=== PATIENT | female | born 1945 | race Caucasian/White ===

== ENCOUNTER → 2016-10-02 | Outpatient (CLI) | payer OTHER ==
[~2016-10-02] MED LIST: 'XANAX0.25 MG PO; ADDERALL 20 MG20 MG PO; AMPICILLIN250 MG PO; ARTHROTEC50 MG PO; ATARAX25 MG PO; ATIVAN1 MG PO; BACTRIM DS 8001 TA1 PO; BACTROBAN CREAM15 GM PO; BRIN20TA PO; BUPROPION HCL150 MG PO; CELEXA20 MG PO; CILOXAN 5 ML5 M1 OT; CIPRO250 MG PO; CIPRO500 MG PO; CIPROFLOXACIN500 M4 PO; CLINDAMYCIN HC300 MG PO; CYMBALTA30 MG PO; DAYPRO600 M1 PO; DELTASONE10 MG PO; DEXTROAMPH SACC20 M1 PO; ENTOCORT3 MG PO; ESTRADIOL0.5 MG PO; FLEXERIL10 MG PO; FLONASE0.05 MG/AC NS; HUMIRA40 MG/0.8 MR; HYDROCODONE BIT1 T11 PO; LAMICTAL CD25 MG PO; LEVOFLOXACIN500 MG PO; LEVOTHYROXINE0.15 M1 PO; LIDODERM 5% PATC1 EA T; LISINOPRIL10 MG PO; MEDROL DOSEPAK4 MG PO; METRONIDAZOLE250 M1 PO; NAPROSYN500 MG PO; OXYCODONE HCL30 MG PO; OXYCODONE HYDRO30 MG PO; OXYCODONE30 MG PO; PENTASA500 MG PO; PERCOCET 325 MG1 TA7 PO; PREDNISONE20 MG PO; PREMARIN0.3 MG PO; PRINIVIL10 MG PO; PYRIDIUM200 MG PO; ROBAXIN500 MG PO; SYNTHROID0.125 MG PO; TRAMADOL HCL50 MG PO; VIIBRYD40 PO; VITAMIN D50000 I3 PO; WALKER; XANAX0.25 MG PO; ZOFRAN ODT4 MG PO; ZOFRAN ODT4 MG SL; [UNRECOGNIZED DRUG - OTHER]
== END | disposition home or self-care (01) ==
LOC: RAD 09-30 11:00 → MRI 09:00
DX: M47.895 Other spondylosis, thoracolumbar region (principal); M51.26 Other intervertebral disc displacement, lumbar region; M48.07 Spinal stenosis, lumbosacral region; M48.54XA Collapsed vertebra, not elsewhere classified, thoracic region, initial encounter for fracture; Z87.81 Personal history of (healed) traumatic fracture

== ENCOUNTER → 2016-10-13 | Outpatient (CLI) | payer OTHER ==
[~2016-10-13] MED LIST changes: +CILOXAN 5 ML5 M1
[2016-10-13 12:18] LABS: BASO % 0.2 % (0.0-1.0); EOS # 0.2 10*3/uL (0.0-0.4); EOS % 2.2 % (1.0-4.0); HEMATOCRIT 41.3 % (37.0-47.0); HEMOGLOBIN 12.7 g/dl (12.0-16.0); LYMPH # 1.5 10*3/uL (1.3-4.4); LYMPH % 16.9 % (27.0-41.0); MEAN CELL VOLUME 91.8 fl (81.0-99.0); MEAN CORPUSCULAR HGB 28.2 pg (27.0-31.0); MEAN CORPUSCULAR HGB CONC 30.8 g/dl (33.0-37.0); MEAN PLATELET VOLUME 9.8 fl (9.6-12.3); MONO # 0.7 10*3/uL (0.1-1.0); MONO % 7.5 % (3.0-9.0); NEUT # 6.5 10*3/uL (2.3-7.9); NEUT % 72.9 % (47.0-73.0); PLATELET COUNT AUTOMATED 250 10*3/uL (130-400); RED CELL DISTRI WIDTH 14.6 % (0-14.5); WHITE BLOOD COUNT 8.9 10*3/uL (4.8-10.8)
[2016-10-13 12:26] LABS: ALBUMIN 3.5 gm/dl (3.1-4.5); ALKALINE PHOSPHATASE 72 U/L (45-117); BILIRUBIN, TOTAL 0.7 mg/dl (0.2-1.0); BUN 15 mg/dl (7-24); CARBON DIOXIDE 28 mmol/L (21-32); CHLORIDE 103 mmol/L (98-107); CHOLESTEROL 187 mg/dL (<200); EST GLOM FILT AFRICAN AMERICAN > 60 ml/min; FREE T4 1.16 ng/dl (0.76-1.46); GLUCOSE 87 mg/dL (65-99); HDL CHOLESTEROL 81 mg/dl (40-60); LDL CHOLESTEROL 82 mg/dL (9-159); SGOT/AST 25 IU/L (3-35); SGPT/ALT 21 U/L (12-78); SODIUM 141 mmol/L (136-145); TOTAL PROTEIN 6.7 gm/dL (6.4-8.2); TRIGLYCERIDES 118 mg/dl (<150); VLDL CHOLESTEROL 24 mg/dL (6-40)
[2016-10-13 12:47] LABS: VITAMIN D, 25-HYDROXY 32.7 ng/mL (30-100)
[2016-10-13 12:49] LABS: FOLIC ACID > 24.00 ng/mL (>5.38)
== END | disposition home or self-care (01) ==
LOC: LAB 10:55
PROVIDERS: Internal Medicine
DX: I10 Essential (primary) hypertension (principal); M48.55XA Collapsed vertebra, not elsewhere classified, thoracolumbar region, initial encounter for fracture; F90.9 Attention-deficit hyperactivity disorder, unspecified type; E03.9 Hypothyroidism, unspecified; M54.5 Low back pain; E55.9 Vitamin D deficiency, unspecified; M48.06 Spinal stenosis, lumbar region; M41.84 Other forms of scoliosis, thoracic region; Z91.81 History of falling

== ENCOUNTER → 2016-10-14 | Day surgery (SDC) | payer OTHER ==
[~2016-10-14] VITALS: Ht 152.4 cm; Wt 72.6 kg
--- NOTE | ~2016-10-14 | O ---
[place], [place] OPERATIVE NOTE NAME: ODETTE BOLAND [facility] #: [id number] UNIT #: [id number] ROOM: DOCTOR: JIAN MCGEE MD BIRTHDATE: [birth year] DOS: 10/15/2016 PREOPERATIVE DIAGNOSIS: Retained ventilation tubes. POSTOPERATIVE DIAGNOSIS: Retained ventilation tubes. OPERATION: Removal of retained ventilation tubes. SURGEON: Dr. Mcgee. ANESTHESIA: General. INDICATIONS: The patient is being taken to the operating room for removal of retained ventilation tubes. OPERATIVE FINDINGS AND PROCEDURE: Following induction of general anesthesia, the patient was positioned supine on the OR table and draped in a standard fashion for ear surgery. The surgical microscope was brought into the operative field. The ears were examined, and retained synthetic ventilation tubes were removed from the ear canals bilaterally. Topical ciprofloxacin drops were then instilled in both ears. The patient tolerated the procedure well, was awakened and transported to PACU in satisfactory condition. JIAN MCGEE MD CM:OPRECORD:OPERATIVE NOTE [id number] JIAN MCGEE MD 10/15/16 1109 interface
[2016-10-14 12:20] VITALS: BP 123/57
[2016-10-14 12:35] VITALS: BP 105/68
[2016-10-14 12:50] VITALS: BP 140/79
== END | disposition home or self-care (01) ==
LOC: SDC 09-04 10:15
DX: H74.8X3 Other specified disorders of middle ear and mastoid, bilateral (principal); E07.9 Disorder of thyroid, unspecified; F32.9 Major depressive disorder, single episode, unspecified; I10 Essential (primary) hypertension; F41.9 Anxiety disorder, unspecified; K50.90 Crohn's disease, unspecified, without complications; Z90.710 Acquired absence of both cervix and uterus; Z80.9 Family history of malignant neoplasm, unspecified; Z82.49 Family history of ischemic heart disease and other diseases of the circulatory system; Z87.891 Personal history of nicotine dependence

== ENCOUNTER → 2016-10-21 | Outpatient (CLI) | payer OTHER ==
[2016-10-21 10:21] LABS: INTERNATIONAL NORM RATIO 0.9 (2.0-3.5)
[2016-10-21 10:41] VITALS: BP 138/76
== END | disposition home or self-care (01) ==
LOC: RAD 10-20 11:00
PROVIDERS: Internal Medicine
DX: M48.54XA Collapsed vertebra, not elsewhere classified, thoracic region, initial encounter for fracture (principal); D68.8 Other specified coagulation defects; Z91.81 History of falling

== ENCOUNTER 2017-03-27 12:42 | Emergency (ER) | payer OTHER ==
[~2017-03-27] VITALS: Ht 180.3 cm; Wt 74.8 kg
[2017-03-27 12:50] VITALS: BP 149/89
[2017-03-27 14:24] LABS: BILIRUBIN 1+ (NEGATIVE); BLOOD NEGATIVE (NEGATIVE); CLARITY SL CLOUDY (CLEAR); COLOR YELLOW (YELLOW); GLUCOSE NEGATIVE (NEGATIVE); KETONE TRACE (NEGATIVE); LEUKO ESTERASE TRACE (NEGATIVE); NITRITE POSITIVE (NEGATIVE); SPECIFIC GRAVITY 1.015 (1.005-1.030)
[2017-03-27 14:25] LABS: BASO % 0.1 % (0.0-1.0); EOS # 0.2 10*3/uL (0.0-0.4); EOS % 2.4 % (1.0-4.0); HEMATOCRIT 40.1 % (37.0-47.0); HEMOGLOBIN 12.6 g/dl (12.0-16.0); LYMPH # 1.1 10*3/uL (1.3-4.4); LYMPH % 13.4 % (27.0-41.0); MEAN CORPUSCULAR HGB 29.2 pg (27.0-31.0); MEAN CORPUSCULAR HGB CONC 31.4 g/dl (33.0-37.0); MEAN PLATELET VOLUME 10.5 fl (9.6-12.3); MONO # 0.4 10*3/uL (0.1-1.0); MONO % 5.4 % (3.0-9.0); NEUT # 6.2 10*3/uL (2.3-7.9); NEUT % 78.4 % (47.0-73.0); PLATELET COUNT AUTOMATED 148 10*3/uL (130-400); RED BLOOD COUNT 4.31 10*6/uL (4.10-5.10); RED CELL DISTRI WIDTH 14.6 % (0-14.5); WHITE BLOOD COUNT 7.9 10*3/uL (4.8-10.8)
[2017-03-27 14:31] LABS: BACTERIA 1+; RBC 0-2 rbc/hpf (0-2); WBC 16-20 wbc/hpf (0-5)
[2017-03-27 14:39] LABS: ACT PARTIAL THROMBO TIME 25.5 SECONDS (20.8-31.5); ALBUMIN 3.5 gm/dl (3.1-4.5); ALKALINE PHOSPHATASE 85 U/L (45-117); BUN 12 mg/dl (7-24); CHLORIDE 106 mmol/L (98-107); CREATININE 0.98 mg/dL (0.55-1.02); LIPASE 115 U/L (73-393); POTASSIUM 3.6 mmol/L (3.5-5.1); SGOT/AST 26 IU/L (3-35); SGPT/ALT 20 U/L (12-78); SODIUM 140 mmol/L (136-145); TOTAL PROTEIN 6.6 gm/dL (6.4-8.2); TROPONIN I < 0.015 ng/ml (<0.045)
[2017-03-27] MEDS ORDERED: PREDNISONE50 MG PO (15:11)
[2017-03-27] MEDS ORDERED: LEVAQUIN750 M1 PO (15:11)
== END 2017-03-27 15:34 | disposition home or self-care (01) ==
LOC: ED 12:42
PROVIDERS: Emergency Medicine
DX: J20.9 Acute bronchitis, unspecified (principal); N39.0 Urinary tract infection, site not specified; I10 Essential (primary) hypertension; E03.9 Hypothyroidism, unspecified; Z87.891 Personal history of nicotine dependence; Z90.49 Acquired absence of other specified parts of digestive tract; Z90.710 Acquired absence of both cervix and uterus; Z98.890 Other specified postprocedural states; Z79.899 Other long term (current) drug therapy; Z88.8 Allergy status to other drugs, medicaments and biological substances

== ENCOUNTER → 2017-04-16 | Outpatient (CLI) | payer OTHER ==
[~2017-04-16] MED LIST changes: +LEVAQUIN750 M1 PO; +PREDNISONE50 MG PO
== END | disposition home or self-care (01) ==
LOC: RAD 11:27
DX: Z13.820 Encounter for screening for osteoporosis (principal); Z78.0 Asymptomatic menopausal state

== ENCOUNTER 2017-08-09 04:47 | Inpatient (IN) | payer OTHER ==
[~2017-08-09] VITALS: Ht 154.9 cm; Wt 73.7 kg
[2017-08-09] VITALS (7 sets, daily range): BP systolic 123–164; BP diastolic 53–65
--- NOTE | ~2017-08-09 | DS ---
[place], [place] DISCHARGE SUMMARY NAME: ODETTE BOLAND [facility] #: [id number] UNIT #: [id number] ROOM: 422 DOCTOR: DUANE GAMASATNAM BIRTHDATE: [birth year] DOS: 08/12/2017 DIAGNOSES: 1. Paralytic ileus, which is resolved. 2. Chronic diarrhea from history of Crohn's colitis, for colonoscopy today. 3. Hypokalemia. Supplementation was given. 4. Benign hypertension. 5. Major mild depression, recurrent. 6. Attention deficit disorder. 7. Generalized anxiety disorder. 8. Chronic back pain from degenerative spinal stenosis with neurogenic claudication. 9. History of cholecystectomy. 10. Exploratory surgery for adhesiolysis. DISCHARGE MEDICATIONS: The patient's medications on discharge will remain the same as in admission: Lisinopril 10, Xanax 0.25 t.i.d. p.r.n., oxycodone 30 q. 4 p.r.n., levothyroxine 150 mcg daily, Adderall 20 b.i.d., Lyrica 300 b.i.d., alendronate 70 once weekly, iron 325 daily, Estrace for local application. HOSPITAL COURSE: The patient is 72 years old. The patient comes in with extreme abdominal pain and diarrhea. Please see H and P for details. She was found to have ileus on x-rays of the abdomen. She was admitted, kept n.p.o., IV fluids were given. The patient became extremely anxious and agitated and restless. Dr. Murdock was consulted. She was already on Xanax through her psychiatrist, which has been continued. Dr. Murdock felt that she would benefit from doxepin, which was started. She was continued on Dilaudid for chronic back pain and abdominal pain. Dr. Fagan was consulted and was scheduled for a colonoscopy. She has history of Crohn's colitis, but has not been taking any of her medications for the last several years and may require restarting her medicines. This morning, the patient is stable. Blood pressure did go up during the night, but has come down promptly after clonidine was given. The patient can be discharged home after the endoscopy and colonoscopy and follow up as an outpatient. [place], [place] DISCHARGE SUMMARY NAME: ODETTE BOLAND UNIT #: [id number] ROOM: [facility] DOCTOR: SATNAM EZPEDA MD BIRTHDATE: [birth year] SATNAM ZEPEDA MD CM:JANESSA [id number] SATNAM ZEPEDA MD 08/13/17 1143 interface
--- NOTE | ~2017-08-09 | O ---
[place], [place] OPERATIVE NOTE NAME[facility] [id number] UNIT #: [id number] ROOM: 422 DOCTOR: AGATHA WHITMAN MD BIRTHDATE: [birth year] DOS: 08/12/2017 GASTROENDOSCOPIC REPORT HISTORY: This is a 72-year-old patient, who presented with abdominal cramp, epigastric distress, dark stool, and symptomatology of flu. She had to be admitted for definitive workup. Her lactic acid initially was 1.4. Her H and H were 13 and 41. INR 1.0. Electrolytes, potassium 3.2. Liver function tests normal. Troponin normal. She had acute abdominal series, no acute cardiopulmonary. Drug screening, urine opiates were positive. Urinalysis, ketones 1+. CT scan of the abdomen and pelvis, few prominent nonenlarged loops of the bowel, possible resolving partial obstruction. A large hiatal hernia was reported. Acute abdominal series again followup, no active pathology was noticed. Therefore, she was prepped for evaluation. PAST MEDICAL HISTORY: Ambiguous history of Crohn's history, diverticulosis history, colonic polyp, hiatal hernia, hypertension, and hypothyroidism. PAST SURGICAL HISTORY: Appendectomy, laparotomy, hysterectomy, cholecystectomy, and spine surgery. SOCIAL HISTORY: Nonsmoker, nonalcohol consumer. FAMILY HISTORY: Noncontributory. ALLERGIES: TO PROMETHAZINE. MEDICATIONS AT HOME: Reviewed. PROCEDURE: Today's procedure part of investigation is panendoscopy plus colonoscopy. PREMEDICATION: Versed and Diprivan. SCOPE: Olympus forward-viewing colonoscope 10L video. REPORT: After putting the patient in the left lateral position and application of lubricant to the scope, the scope was introduced; thereafter, under direct visualization advanced through the length of esophagus without difficulty. [id number] hiatal hernia was noticed. Gastric pouch was entered. Gastritis was seen. Antral biopsy obtained. Duodenal bulb, second and third part within normal limits. The patient was gradually extubated and tolerated the procedure well. IMPRESSION: Large hiatal hernia, gastritis. PLAN AND DISCUSSION: We are going to proceed with colon screening. [place], [place] OPERATIVE NOTE NAME: ODETTE BOLAND UNIT #: [id number] ROOM: 422 DOCTOR: BALJINDER [facility] BIR[facility] [birth year] AGATHA WHITMAN MD CM:MARSHAL:OPERATIVE NOTE [phone] AGATHA WHITMAN MD 08/13/17 1401 interface
--- NOTE | ~2017-08-09 | O ---
[place], [place] OPERATIVE NOTE [facility] [id number] UNIT #: [id number] ROOM: 422 DOCTOR: ANTONETTE GAMA,AGATHA BIRTHDATE: [birth year] DOS: 08/12/2017 GASTROENDOSCOPIC REPORT HISTORY: The patient has presented with a chief complaint of abdominal pain, ambiguous, undergoing investigation. PROCEDURE: Today's procedure part of investigation is colonoscopy. PREMEDICATION: Versed and Diprivan. SCOPE: Olympus forward-viewing colonoscope 10L video. REPORT: After putting the patient in the left lateral position and application of lubricant to the scope, the scope was introduced; thereafter, under direct visualization advanced through the length of colon without difficulty. Base of the cecum explored, appendiceal orifice identified, and ileocecal valve was defined. Scope was gradually withdrawn from ascending, transverse, and descending colon. The patient gradually extubated and tolerated the procedure well. IMPRESSION: Rare diverticulosis, otherwise normal colonoscopic examination. PLAN AND DISCUSSION: PPI in addition to 40 mg of Protonix. We can consider use of Gaviscon 1 at bedtime to prevent some of her reflux symptomatology. She has supportive management otherwise. X-rays of the abdomen, CT scans, and blood work all has been recognized and no acute pathology of concern otherwise identified. AGATHA WHITMAN MD CM:OPRECORD:OPERATIVE NOTE [id number] AGATHA WHITMAN MD 08/13/17 1402 interface
--- NOTE | ~2017-08-09 | PR ---
[place], [place] PROGRESS NOTE NAME: ODETTE BOLAND [facility] #: [id number] UNIT #: [id number] ROOM: 422 DOCTOR: SATNAM ZEPEDA MD BIRTHDATE: [birth year] DOS: 08/12/2017 SUBJECTIVE: The patient is doing fine without any complaints. Her pressure was high during the night, was given clonidine, the pressure is normal this morning. I believe she most likely did get quite anxious about the pending procedure. OBJECTIVE: VITAL SIGNS: Blood pressure is 137/90, pulse of 73, respirations 18, temperature 98.3. LUNGS: Clear. HEART: Regular. ABDOMEN: Obese. EXTREMITIES: Without any edema. ASSESSMENT AND PLAN: 1. Hypokalemia noted. Supplementation was ordered. 2. Paralytic ileus, which is resolved on acute abdominal series. The patient is to have a colonoscopy today. After that is done, the patient should be able to go back home. Discussed with both patient and . SATNAM ZEPEDA MD CM:PNTRANS 0848 0945 SATNAM ZEPEDA MD 08/12/17 2344 interface
--- NOTE | ~2017-08-09 | PR ---
[place], [place] PROGRESS NOTE NAME: ODETTE BOLAND [facility] #: [id number] UNIT #: [id number] ROOM: 422 DOCTOR: SATNAM ZEPEDA MD BIRTHDATE: [birth year] DOS: 08/10/2017 SUBJECTIVE: The patient is doing fine without any complaints this morning. She said before she came into the hospital, she had a lot of increased frequency of urination. The patient does not have any complaints other than her chronic pain. OBJECTIVE: VITAL SIGNS: Blood pressure is 140/62, pulse of 74, respirations 18, temperature 97.6. LUNGS: Clear. HEART: Regular. ABDOMEN: Obese, soft. EXTREMITIES: Without any edema. ASSESSMENT AND PLAN: 1. Paralytic ileus, possibly from medications. Awaiting acute abdominal series this morning. If it looks better, the patient hopefully can be taken for Endo-colo. 2. Crohn's colitis with the patient currently not taking any medications. Once we have the colonoscopy, Dr. Fagan will decide on restarting her meds. 3. Urinary tract infection. Urinalysis done in the beginning of admission did not show any evidence of any bacteriuria, so it is ____ to culture. We do not have the results yet. 4. Anxiety. The patient sees psych as an outpatient. Dr. Murdock was consulted. The patient has been placed on Atarax and Xanax p.r.n. SATNAM ZEPEDA MD CM:PNTRANS 0817 0840 SATNAM ZEPEDA MD 08/13/17 1151 interface
--- NOTE | ~2017-08-09 | CON ---
[place], [place] REPORT OF CONSULTATION [id number] UNIT #: [id number] ROOM: 422 DOCTOR: MELISA JADE MD BIRTHDATE: [birth year] DOS: 08/10/2017 PSYCHIATRIC CONSULTATION CHIEF COMPLAINT: "Oh, I have so much pain, it drives me crazy." SUMMARY OF THE VISIT: This is a 72-year-old white female who is admitted now due to multiple medical complaints including possible paralytic ileus and Crohn's colitis. The patient does note though that she has significant depression and anxiety, much of this is made worse by her chronic pain. 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 She has now sustained at least 2 vertebrae that have collapsed. She is in constant chronic pain and rates the pain usually as an 8 or 9 on a scale of 1-10 with 10 being the worst pain. The pain often times will interfere with her sleep, causing her to have difficulty falling asleep, sleep continuity disturbance, foamite mixer awakening. She is very anergic and anhedonic. She also endorses fluctuations in her appetite. Anxiety is somewhat free range as well. Of note, the patient has a history of Crohn's colitis. MENTAL STATUS: She is alert and oriented to person, place and time. Mood does seem to be depressed with anxious overtones. There is no anson, hypomania or psychosis. Memory for the most part is intact. DIAGNOSES: Major depression, recurrent and anxiety disorder, not otherwise specified. PLAN: I will go ahead and start her on low dose doxepin. The doxepin will increase the effectiveness of the Vicodin at relieving her pain. It will also slow the Crohn's colitis down. It should give her a calming affect during the day, whereby you would not have to utilize any addicting type of agent. The patient does report having been on Cymbalta before and it was ineffective at relieving depression, anxiety and pain, so I will not utilize this again. The patient can follow up with her outpatient provider. MELISA JADE MD CM:CONSTR:REPORT OF CONSULTATION 0956 08/10/17 1011 interface
--- NOTE | ~2017-08-09 | WRIGHTHP ---
[place], [place] PATIENT HISTORY AND PHYSICAL EXAM NAME: ODETTE BOLAND [facility] #: [id number] UNIT #: [id number] ROOM: 422 DOCTOR: SATNMA ZEPEDA MD BIRTHDATE: [birth year] DOS: 08/09/2017 HISTORY OF PRESENT ILLNESS: The patient was brought to the Emergency Room with complaints of abdominal pain. The patient was quite somnolent. I was unable to get any history from her. The patient's was available and spoke to him. She has been having some intermittent diarrhea for the last several days and he had given her Kaopectate and this seems to have slowed diarrhea down, but yesterday she developed some severe abdominal pain, was brought to the Emergency Room. In the ER, she appeared to be quite restless as per the ER staff and she was given multiple doses of Ativan and Benadryl. This made the patient extremely somnolent and the patient had to be admitted to the hospital. Denied having any chest pains or palpitations. She does not have any fever or chills. She has had some abdominal discomfort recently and she was scheduled for an endoscopy and colonoscopy as an outpatient for Thursday and the patient has been extremely anxious about the procedure as per the family. PAST MEDICAL HISTORY: Significant for: 1. Degenerative lumbar spinal stenosis with neurogenic claudication. She is on steroid injections of the back and chronic pain management. 2. History of Crohn's colitis. The last hospitalization was in 2015. 3. Benign hypertension. 4. Major depression. 5. Attention deficit disorder, for which she takes Adderall. 6. History of exploratory surgery with adhesiolysis. 7. History of cholecystectomy. MEDICATIONS: She is on Adderall, oxycodone, Viibryd, Lyrica, levothyroxine and lisinopril. SOCIAL HISTORY: Nonsmoker, does not use any alcohol. Lives at home. 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 VITAL SIGNS: Graphic trend shows blood pressure of 144/64, pulse of 92, respirations 20, temperature 97.6. LUNGS: Diminished breath sounds. No wheezes, rales or rhonchi heard. HEART: Regular. ABDOMEN: Obese, soft, multiple scars from previous surgeries. EXTREMITIES: Without any edema. ASSESSMENT AND PLAN: 1. The patient presents with abdominal pain with minimal amount of ileus noticed on a CT scan of the abdomen. The patient will be kept n.p.o. and IV fluids and a repeat abdominal CT will be ordered tomorrow to see whether there is improvement. 2. History of Crohn's colitis, diagnosed in 2016. The patient was never placed on any medications for Crohn's and has had intermittent diarrhea for many, many years now. The patient used to be taking Humira and Pentasa about 10-15 years ago, but was discontinued because it was too expensive. We may need to restart [place], [place] PATIENT HISTORY AND PHYSICAL EXAM NAME: ODETTE BOLAND [facility] #: [id number] UNIT #: [id number] ROOM: [facility] DOCTOR: SATNAM ZEPEDA MD BIRTHDATE: [birth year] some of her old medications again, We will let Dr. Fagan handle it. 3. Chronic pain syndrome. The patient is on multiple pain medications, which currently are on hold because of n.p.o. status. SATNAM ZEPEDA MD CM:HISPHYS:PATIENT HISTORY AND PHYSICAL EXAMINATION 0850 1130 SATNAM ZEPEDA MD 08/09/17 1128 interface
--- NOTE | ~2017-08-09 | PR ---
[place], [place] PROGRESS NOTE NAME: ODETTE BOLAND [facility] #: [id number] UNIT #: [id number] ROOM: 422 DOCTOR: SATNAM ZEPEDA MD BIRTHDATE: [birth year] DOS: 08/11/2017 SUBJECTIVE: The patient is not having any complaints. As per her , she gets restless during the night, so he stayed back with her. OBJECTIVE: VITAL SIGNS: Graphic trend shows blood pressure 130/82, pulse of 62, respirations 16, temperature 98. LUNGS: Clear. HEART: Regular. ABDOMEN: Obese, soft. EXTREMITIES: Without any edema. ASSESSMENT AND PLAN: 1. Abdominal pain with paralytic ileus, which has resolved. 2. History of Crohn's disease. The patient is not on any medications. Dr. Fagan plans to do an endo-colo tomorrow, after that the patient can be discharged. 3. Ibrahim catheter can be discontinued in the morning. She did not want to have it removed today. 4. Chronic back pain from degenerative lumbar spinal stenosis. She is taking pain medications IV now, not p.o. 5. Generalized anxiety disorder, on multiple medications. We will not make any changes right now. SATNAM ZEPEDA MD CM:PNTRANS 0823 0837 SATNAM ZEPEDA MD 08/13/17 1151 interface
[2017-08-09 05:51] LABS: BASO % 0.1 % (0.0-1.0); EOS # 0.1 10*3/uL (0.0-0.4); EOS % 1.5 % (1.0-4.0); HEMATOCRIT 41.7 % (37.0-47.0); HEMOGLOBIN 13.3 g/dl (12.0-16.0); LYMPH % 11.3 % (27.0-41.0); MEAN CELL VOLUME 91.6 fl (81.0-99.0); MEAN CORPUSCULAR HGB 29.2 pg (27.0-31.0); MEAN CORPUSCULAR HGB CONC 31.9 g/dl (33.0-37.0); MEAN PLATELET VOLUME 10.4 fl (9.6-12.3); MONO # 0.6 10*3/uL (0.1-1.0); MONO % 6.7 % (3.0-9.0); NEUT # 7.2 10*3/uL (2.3-7.9); NEUT % 80.1 % (47.0-73.0); PLATELET COUNT AUTOMATED 135 10*3/uL (130-400); RED BLOOD COUNT 4.55 10*6/uL (4.10-5.10); RED CELL DISTRI WIDTH 15.7 % (0-14.5); WHITE BLOOD COUNT 9.1 10*3/uL (4.8-10.8)
[2017-08-09 06:10] LABS: ALBUMIN 3.2 gm/dl (3.1-4.5); ALKALINE PHOSPHATASE 81 U/L (45-117); BUN 8 mg/dl (7-24); CHLORIDE 107 mmol/L (98-107); CREATININE 0.75 mg/dL (0.55-1.02); LIPASE 82 U/L (73-393); POTASSIUM 3.2 mmol/L (3.5-5.1); SGOT/AST 20 IU/L (3-35); SGPT/ALT 22 U/L (12-78); SODIUM 141 mmol/L (136-145); TOTAL PROTEIN 6.4 gm/dL (6.4-8.2); TROPONIN I 0.017 ng/ml (<0.045)
[2017-08-09 06:18] LABS: BILIRUBIN NEGATIVE (NEGATIVE); BLOOD NEGATIVE (NEGATIVE); CLARITY CLEAR (CLEAR); COLOR YELLOW (YELLOW); GLUCOSE NEGATIVE (NEGATIVE); KETONE 1+ (NEGATIVE); LEUKO ESTERASE NEGATIVE (NEGATIVE); NITRITE NEGATIVE (NEGATIVE)
[2017-08-09 06:27] LABS: URINE AMPHETAMINES < 1000 (1000ng/ml); URINE BARBITURATES < 200 (200ng/ml); URINE BENZODIAZEPINES < 200 (200ng/ml); URINE CANNABINOIDS (THC) < 50 (50ng/ml); URINE COCAINE < 300 (300ng/ml); URINE METHADONE < 300 (300ng/ml); URINE OPIATES > 300 (300ng/ml)
[2017-08-09 06:28] LABS: URINE PHENCYCLIDINE < 25 (25ng/ml)
[2017-08-09 06:30] LABS: BACTERIA TRACE
[2017-08-09] MEDS ORDERED: FOSAMAX70 M1 PO (12:13)
[2017-08-09] MEDS ORDERED: LYRICA300 MG PO (12:13)
[2017-08-09] MEDS ORDERED: FEROSUL325 MG PO (12:14)
[2017-08-09] MEDS ORDERED: ESTRACE 0.01%42.5 GM V (12:14)
[2017-08-10] VITALS: BP 140/62
[2017-08-10 08:00] VITALS: BP 141/51
[2017-08-10 12:00] VITALS: BP 146/86
[2017-08-10 16:00] VITALS: BP 132/59
[2017-08-10 20:00] VITALS: BP 142/68
[2017-08-11] VITALS: BP 153/63
[2017-08-11 07:49] VITALS: BP 130/80
[2017-08-11 11:43] VITALS: BP 154/80
[2017-08-11 16:00] VITALS: BP 161/58
[2017-08-11 20:00] VITALS: BP 149/54
[2017-08-12] VITALS (8 sets, daily range): BP systolic 120–174; BP diastolic 52–90
[2017-08-12 06:59] LABS: BASO % 0.4 % (0.0-1.0); EOS # 0.3 10*3/uL (0.0-0.4); EOS % 5.3 % (1.0-4.0); HEMATOCRIT 35.6 % (37.0-47.0); HEMOGLOBIN 11.8 g/dl (12.0-16.0); LYMPH % 20.2 % (27.0-41.0); MEAN CELL VOLUME 90.6 fl (81.0-99.0); MEAN CORPUSCULAR HGB CONC 33.1 g/dl (33.0-37.0); MEAN PLATELET VOLUME 10.5 fl (9.6-12.3); MONO # 0.5 10*3/uL (0.1-1.0); MONO % 10.4 % (3.0-9.0); NEUT # 3.3 10*3/uL (2.3-7.9); NEUT % 63.5 % (47.0-73.0); PLATELET COUNT AUTOMATED 124 10*3/uL (130-400); RED BLOOD COUNT 3.93 10*6/uL (4.10-5.10); RED CELL DISTRI WIDTH 15.2 % (0-14.5); WHITE BLOOD COUNT 5.1 10*3/uL (4.8-10.8)
[2017-08-12 07:10] LABS: BUN 3 mg/dl (7-24); CHLORIDE 110 mmol/L (98-107); CREATININE 0.48 mg/dL (0.55-1.02); POTASSIUM 3.3 mmol/L (3.5-5.1); SODIUM 142 mmol/L (136-145)
[2017-08-12] MEDS ORDERED: LISINOPRIL20 MG PO ×2 (08:49)
[2017-08-12] MEDS ORDERED: K-TAB10 MEQ PO (08:50)
== END 2017-08-12 12:10 | disposition home or self-care (01) | DRG 386 ==
LOC: ED 04:47 → EDHOLD 07:50 → 4E 07:50
PROVIDERS: Emergency Medicine Emergency Medical Services; Internal Medicine
PROC: 0DJD8ZZ Inspection of Lower Intestinal Tract, Via Natural or Artificial Opening Endoscopic (ICD-10-PCS; principal; 2017-08-12)
PROC: 0DB68ZX Excision of Stomach, Via Natural or Artificial Opening Endoscopic, Diagnostic (ICD-10-PCS; 2017-08-12)
DX: K50.119 Crohn's disease of large intestine with unspecified complications (principal); K56.0 Paralytic ileus; E44.1 Mild protein-calorie malnutrition; N39.0 Urinary tract infection, site not specified; F33.9 Major depressive disorder, recurrent, unspecified; E83.51 Hypocalcemia; K29.70 Gastritis, unspecified, without bleeding; K44.9 Diaphragmatic hernia without obstruction or gangrene; K57.30 Diverticulosis of large intestine without perforation or abscess without bleeding; K63.5 Polyp of colon; R82.4 Acetonuria; I10 Essential (primary) hypertension; E87.6 Hypokalemia; F98.8 Other specified behavioral and emotional disorders with onset usually occurring in childhood and adolescence; R26.2 Difficulty in walking, not elsewhere classified; E03.9 Hypothyroidism, unspecified; D72.810 Lymphocytopenia; E80.6 Other disorders of bilirubin metabolism; F41.1 Generalized anxiety disorder; G89.29 Other chronic pain; M48.062 Spinal stenosis, lumbar region with neurogenic claudication; M54.9 Dorsalgia, unspecified; Z88.8 Allergy status to other drugs, medicaments and biological substances; Z79.899 Other long term (current) drug therapy; Z90.49 Acquired absence of other specified parts of digestive tract; Z90.710 Acquired absence of both cervix and uterus; Z87.891 Personal history of nicotine dependence; Z82.49 Family history of ischemic heart disease and other diseases of the circulatory system; Z80.1 Family history of malignant neoplasm of trachea, bronchus and lung; Z82.5 Family history of asthma and other chronic lower respiratory diseases; Z87.311 Personal history of (healed) other pathological fracture

== ENCOUNTER 2017-09-03 13:59 | Emergency (ER) | payer OTHER ==
[~2017-09-03 13:59] MED LIST changes: +ESTRACE 0.01%42.5 GM V; +FEROSUL325 MG PO; +FOSAMAX70 M1 PO; +K-TAB10 MEQ PO; +LISINOPRIL20 MG PO; +LYRICA300 MG PO
[2017-09-03 14:10] VITALS: BP 153/60
[2017-09-03] MEDS ORDERED: MEDROL DOSEPAK4 MG PO (16:17)
== END 2017-09-03 16:10 | disposition home or self-care (01) ==
LOC: ED 13:59
DX: M51.16 Intervertebral disc disorders with radiculopathy, lumbar region (principal); I10 Essential (primary) hypertension; Z90.89 Acquired absence of other organs; Z90.710 Acquired absence of both cervix and uterus; Z88.8 Allergy status to other drugs, medicaments and biological substances

== ENCOUNTER 2017-12-08 13:57 | Inpatient (IN) | payer OTHER ==
[~2017-12-08] VITALS: Ht 149.9 cm; Wt 70.9 kg
--- NOTE | ~2017-12-08 | PR ---
[place], [place] PROGRESS NOTE NAME: ODETTE BOLAND [facility] #: [id number] UNIT #: [id number] ROOM: 408 DOCTOR: SATNAM ZEPEDA MD BIRTHDATE: [birth year] DOS: 12/10/2017 SUBJECTIVE: The patient is not having any complaints today. OBJECTIVE: VITAL SIGNS: Graphic trend shows pressure of 95/57, pulse of 60, respirations 18, temperature 98.8. LUNGS: Clear. HEART: Regular. ABDOMEN: Obese, soft. EXTREMITIES: Without any edema. LABORATORY DATA: Echocardiogram shows normal LV function with LVH was noted. Discussed with Dr. Nicole, suggestion is to place the patient on a low dose of beta susanne. Urine culture shows 25,000 colonies, light gram-negative bacteria, identification is not available. ASSESSMENT AND PLAN: 1. The patient with complaints of shortness of breath, most likely from physical deconditioning. Pain medication dosage has been decreased, which also could be causing respiratory depression. 2. Chronic low back pain, on multiple medications. Again, dosage has been cut back. Discussed with the patient. 3. Left ventricular hypertrophy with diastolic dysfunction noted on the echocardiogram with a negative CTA of the chest. The patient has been started on a low dose beta susanne. SATNAM ZEPEDA MD CM:PNTRANS 0743 42 ASTNAM ZEPEDA MD 12/10/171941 interface
--- NOTE | ~2017-12-08 | DS ---
[place], [place] DISCHARGE SUMMARY NAME: ODETTE BOLAND [facility] #: [id number] UNIT #: [id number] ROOM: 408 DOCTOR: SATNAM ZEPEDA MD BIRTHDATE: [birth year] DOS: 12/10/2017 DIAGNOSES: 1. Shortness of breath, pulmonary embolism was ruled out. 2. Echocardiogram showing diastolic dysfunction and left ventricular hypertrophy. 3. Opioid dependence. 4. Chronic back pain from spinal stenosis. 5. History of compression fractures. 6. Also urinary tract infection with 75,000 colonies of gram-negative bacteria, identification is not available. HISTORY AND HOSPITAL COURSE: The patient is a 72-year-old. The patient presents with complaints of increasing shortness of breath. Please review H and P for details. After admission, the patient was ordered a CT of the chest, which did not show any evidence of PE. She is on multiple pain medications, which possibly is causing some respiratory depression, so the pain medication, oxycodone, has been cut back to every [address] Nicole was consulted. The echocardiogram was ordered. Troponin levels were negative, ruling her out for CO. Echo showed LV function normal, but diastolic dysfunction was noted with LVH. Urine culture showed 25,000 colonies of Klebsiella pneumoniae, which is sensitive to Rocephin, which she was on. This morning, the patient is stable and is not having any new problems. The plan is to discharge her. She was evaluated by PT and they did not feel that the patient would benefit from any physical therapy. Plan is to discharge the oxycodone dosage which has been cut back to every 6 hours, Ceftin 250 twice a day for 5 days, Xanax 0.25 daily p.r.n., Adderall 20 b.i.d., Lyrica 300 b.i.d., alendronate 70 once weekly, doxepin 10 daily and diclofenac 75 b.i.d. SATNAM ZEPEDA MD CM:DISCHARG 0756 0921 SATNAM ZEPEDA MD 12/10/17 0919 interface
--- NOTE | ~2017-12-08 | WRIGHTHP ---
[place], [place] PATIENT HISTORY AND PHYSICAL EXAM NAME: ODETTE BOLAND [facility] #: [id number] UNIT #: [id number] ROOM: 408 DOCTOR: SATNAM ZEPEDA MD BIRTHDATE: [birth year] DOS: 12/08/2017 HISTORY OF PRESENT ILLNESS: The patient states that she has been increasingly short of breath for the last 2 days. She has not been out in the hot weather. She has been in air conditioned room. She does not have any cough, sputum production. Does not have any chest pains or palpitations, does not have any abdominal pain, nausea, emesis, any urinary symptoms or bowel symptoms. PAST MEDICAL HISTORY: Significant for. 1. Chronic pain. 2. Severe lumbar spinal stenosis. 3. History of compression fractures of the lumbar spine. 4. Attention deficit disorder. 5. Generalized anxiety disorder. MEDICATIONS: She is on currently are Adderall, Lyrica, alendronate, doxepin, diclofenac, oxycodone, Xanax. SOCIAL HISTORY: Nonsmoker, does not use any alcohol. She has history of smoking for about 5 years at a very young age, but she has not smoked for about 30 years. She lives at home with her . FAMILY HISTORY: Noncontributory. PHYSICAL EXAMINATION: GENERAL: She is awake and alert and oriented. VITAL SIGNS: Graphic trend shows a pressure of 126/58, respirations 16, temperature 97.6, pulse of 72. LUNGS: Diminished breath sounds, clear. HEART: Regular. ABDOMEN: Soft. EXTREMITIES: Without any edema. NEUROLOGIC: No neuro deficit. LABORATORY DATA: At the time of admission, WBC count is 6.6, hemoglobin 13.6, hematocrit 43.1. Lactic acid 1.1. Comprehensive glucose 98, BUN 13, creatinine 0.76. Electrolytes were normal. Urinalysis is positive for ketones, leukocyte esterase. CT of the chest was unremarkable. ASSESSMENT AND PLAN: 1. The patient presents with shortness of breath possibly from deconditioning, but since the CT of the chest is negative, patient will be placed on IV antibiotics for the UTI and PT, OT will be consulted. It is possible that the multiple medications that she is on is also contributing to her deconditioning. 2. Chronic low back on multiple pain medications causing some of her tiredness and weakness. We need to cut back on some of her pain medications. 3. Urinary tract infection. 4. Shortness of breath. Cardiac etiologies have been ruled out. She did not have an MT. Three sets of troponins come back negative. I did consult [place], [place] PATIENT HISTORY AND PHYSICAL EXAM NAME: ODETTE BOLAND UNIT #: [id number] ROOM: [facility] DOCTOR: SATNAM ZEPEDA MD BIRTHDATE: [birth year] [facility]. He does not feel it is cardiac. An echocardiogram will be scheduled. If the echocardiogram shows normal LV function, the patient should be able to go home. SATNAM ZEPEDA MD CM:HISPHYS:PATIENT HISTORY AND PHYSICAL EXAMINATION 0825 0941 SATNAM ZEPEDA MD 12/26/17 0906 interface
--- NOTE | ~2017-12-08 | CON ---
[place], [place] REPORT OF CONSULTATION [id number] UNIT #: [id number] ROOM: 408 DOCTOR: ALEXIA GAMATYSHAWN BIRTHDATE: [birth year] DOS: 12/08/2017 REASON FOR CONSULTATION: Atypical chest pain and shortness of breath. HISTORY OF PRESENT ILLNESS: The patient is a 72-year-old female without any previous cardiac issues with history of chronic pain related to spinal stenosis, arthritis, Crohn's disease, panic attacks, admitted with severe shortness of breath. Recently, she is becoming worse. The patient states that she could not breathe and the patient got admitted via the Emergency Room. She does not complain of any chest discomfort. She states that she does have shortness of breath usually and now, it is worse. PAST MEDICAL HISTORY: Significant for hypertension. The patient also has history of depression, diverticulosis, hypothyroidism, and spinal stenosis. MEDICATIONS: She is on Medrol Dosepak, lisinopril, and potassium. She is already on ferrous sulfate, Lyrica, Xanax, oxycodone, estradiol, and levothyroxine. PAST SURGICAL HISTORY: Laparotomy, appendectomy, hand surgery, hysterectomy, cholecystectomy. SOCIAL HISTORY: Denies any alcohol or drug abuse. FAMILY HISTORY: Positive for coronary artery disease. PHYSICAL EXAMINATION: VITAL SIGNS: Blood pressure today is 130/70. She is in sinus rhythm. HEENT: Unremarkable. NEUROLOGIC: She is stable. REVIEW OF SYSTEMS: CHEST: Denies any chest discomfort. HEENT: No visual disturbances or hearing problems. CARDIOVASCULAR: As mentioned. GASTROINTESTINAL: No nausea, no vomiting. GENITOURINARY: No dysuria. RESPIRATORY SYSTEM: Significant for shortness of breath. LABORATORY DATA: Sodium 141, potassium 3.6. Creatinine is normal. Cardiac enzymes are all negative. Hemoglobin and hematocrit within normal limits. Chest x-ray showed stable, normal chest evaluation, clear lungs, chest is stable. EKG sinus rhythm, nonspecific ST-T abnormalities. ARUN score is low. IMPRESSION: The patient with mild EKG abnormality, history of hypertension with acute shortness of breath. RECOMMENDATIONS: Agree with the present management. Monitor blood pressure and heart rate closely. We will review the echocardiogram and I will follow up. [place], [place] REPORT OF CONSULTATION NAME: ODETTE BOLAND UNIT #: [id number] ROOM: 408 DOCTOR: ALXEIA GAMA,TYSHAWN BIRTHDATE: [birth year] Thank you for this interesting consultation. TYSHAWN HALE MD CM:CONSTR:REPORT OF CONSULTATION 0710 12/09/17 0746 interface
[2017-12-08 13:59] VITALS: BP 168/91
[2017-12-08 14:35] LABS: BASO % 0.6 % (0.0-1.0); EOS # 0.2 10*3/uL (0.0-0.4); EOS % 2.7 % (1.0-4.0); HEMATOCRIT 43.1 % (37.0-47.0); HEMOGLOBIN 13.6 g/dl (12.0-16.0); LYMPH # 0.9 10*3/uL (1.3-4.4); MEAN CELL VOLUME 90.7 fl (81.0-99.0); MEAN CORPUSCULAR HGB 28.6 pg (27.0-31.0); MEAN CORPUSCULAR HGB CONC 31.6 g/dl (33.0-37.0); MEAN PLATELET VOLUME 10.1 fl (9.6-12.3); MONO # 0.5 10*3/uL (0.1-1.0); MONO % 6.9 % (3.0-9.0); NEUT # 5.1 10*3/uL (2.3-7.9); NEUT % 76.6 % (47.0-73.0); PLATELET COUNT AUTOMATED 202 10*3/uL (130-400); RED BLOOD COUNT 4.75 10*6/uL (4.10-5.10); RED CELL DISTRI WIDTH 14.3 % (0-14.5); WHITE BLOOD COUNT 6.6 10*3/uL (4.8-10.8)
[2017-12-08 14:51] LABS: ACT PARTIAL THROMBO TIME 23.7 SECONDS (20.8-31.5)
[2017-12-08 14:59] LABS: ALBUMIN 3.5 gm/dl (3.1-4.5); ALKALINE PHOSPHATASE 87 U/L (45-117); BUN 13 mg/dl (7-24); CHLORIDE 106 mmol/L (98-107); CREATININE 0.76 mg/dL (0.55-1.02); POTASSIUM 3.6 mmol/L (3.5-5.1); SGOT/AST 24 IU/L (3-35); SGPT/ALT 23 U/L (12-78); SODIUM 141 mmol/L (136-145); TOTAL PROTEIN 6.8 gm/dL (6.4-8.2); TROPONIN I < 0.015 ng/ml (<0.045)
[2017-12-08 15:55] LABS: BILIRUBIN NEGATIVE (NEGATIVE); BLOOD TRACE-LYSED (NEGATIVE); CLARITY CLEAR (CLEAR); COLOR YELLOW (YELLOW); GLUCOSE NEGATIVE (NEGATIVE); KETONE 1+ (NEGATIVE); LEUKO ESTERASE 1+ (NEGATIVE); NITRITE NEGATIVE (NEGATIVE); PH 7.5 (5.0-9.0)
[2017-12-08 16:06] LABS: BACTERIA TRACE
[2017-12-08] MEDS ORDERED: DOXEPIN HCL10 MG PO (16:10)
[2017-12-08] MEDS ORDERED: ARTHROTEC50 MG PO (16:10)
[2017-12-08 16:30] VITALS: BP 158/80
[2017-12-08 17:00] VITALS: BP 151/75
[2017-12-08 20:00] VITALS: BP 136/68
[2017-12-09] VITALS: BP 126/57
[2017-12-09 08:00] VITALS: BP 108/58
[2017-12-09 12:00] VITALS: BP 130/67
[2017-12-09 16:00] VITALS: BP 120/66
[2017-12-09 20:00] VITALS: BP 119/75
[2017-12-10] VITALS: BP 95/57
[2017-12-10] MEDS ORDERED: CEFUROXIME AXE250 MG PO (07:42)
[2017-12-10] MEDS ORDERED: LOPRESSOR25 MG PO (07:54)
[2017-12-10 08:26] VITALS: BP 133/61
== END 2017-12-10 08:48 | disposition home or self-care (01) | DRG 690 ==
LOC: ED 13:57 → 4E 15:42 → EDHOLD 15:42 → 4E 16:06
PROVIDERS: Emergency Medicine
DX: N39.0 Urinary tract infection, site not specified (principal); F11.20 Opioid dependence, uncomplicated; B96.89 Other specified bacterial agents as the cause of diseases classified elsewhere; E03.9 Hypothyroidism, unspecified; F32.9 Major depressive disorder, single episode, unspecified; F41.9 Anxiety disorder, unspecified; F98.8 Other specified behavioral and emotional disorders with onset usually occurring in childhood and adolescence; G89.29 Other chronic pain; K57.90 Diverticulosis of intestine, part unspecified, without perforation or abscess without bleeding; F41.1 Generalized anxiety disorder; M48.00 Spinal stenosis, site unspecified; Z90.49 Acquired absence of other specified parts of digestive tract; Z90.710 Acquired absence of both cervix and uterus; Q63.1 Lobulated, fused and horseshoe kidney; Z80.1 Family history of malignant neoplasm of trachea, bronchus and lung; Z82.49 Family history of ischemic heart disease and other diseases of the circulatory system; E66.9 Obesity, unspecified; M54.5 Low back pain; Z68.29 Body mass index [BMI] 29.0-29.9, adult

== ENCOUNTER → 2018-03-03 | Outpatient (CLI) | payer OTHER ==
[~2018-03-03] MED LIST changes: +CEFUROXIME AXE250 MG PO; +DOXEPIN HCL10 MG PO; +LISINOPRIL10 M1 PO; +LOPRESSOR25 MG PO; +VIIBRYD20 M1 PO
== END | disposition home or self-care (01) ==
LOC: LAB 12:03
DX: Z01.818 Encounter for other preprocedural examination (principal); N39.0 Urinary tract infection, site not specified

== ENCOUNTER → 2018-08-03 | Outpatient (CLI) | payer OTHER ==
[~2018-08-03] MED LIST changes: +DOXYCYCLINE100 M3 PO
== END | disposition home or self-care (01) ==
LOC: RAD 15:36
DX: M80.08XD Age-related osteoporosis with current pathological fracture, vertebra(e), subsequent encounter for fracture with routine healing (principal); M47.816 Spondylosis without myelopathy or radiculopathy, lumbar region; M51.36 Other intervertebral disc degeneration, lumbar region

== ENCOUNTER → 2018-09-22 | Outpatient (CLI) | payer OTHER ==
--- NOTE | ~2018-09-22 | EKG ---
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
== END | disposition home or self-care (01) ==
LOC: CARD 12:44
DX: Z51.81 Encounter for therapeutic drug level monitoring (principal); Z79.899 Other long term (current) drug therapy

== ENCOUNTER → 2018-11-10 | Outpatient (CLI) | payer OTHER | END | disposition home or self-care (01) | LOC: WOUNDCARE 01:24 | DX: T81.89XA Other complications of procedures, not elsewhere classified, initial encounter (principal); S31.000A Unspecified open wound of lower back and pelvis without penetration into retroperitoneum, initial encounter; G89.4 Chronic pain syndrome; M19.90 Unspecified osteoarthritis, unspecified site; I10 Essential (primary) hypertension; F32.9 Major depressive disorder, single episode, unspecified; Z87.891 Personal history of nicotine dependence; X58.XXXA Exposure to other specified factors, initial encounter; Y93.89 Activity, other specified; Y92.89 Other specified places as the place of occurrence of the external cause; Y99.8 Other external cause status; Y83.8 Other surgical procedures as the cause of abnormal reaction of the patient, or of later complication, without mention of misadventure at the time of the procedure ==

== ENCOUNTER → 2018-11-18 | Outpatient (CLI) | payer OTHER | END | disposition home or self-care (01) | LOC: WOUNDCARE 01:09 | DX: T81.31XD Disruption of external operation (surgical) wound, not elsewhere classified, subsequent encounter (principal); I10 Essential (primary) hypertension; G89.4 Chronic pain syndrome; J42 Unspecified chronic bronchitis; M19.90 Unspecified osteoarthritis, unspecified site; F32.9 Major depressive disorder, single episode, unspecified; Z87.891 Personal history of nicotine dependence; Y83.8 Other surgical procedures as the cause of abnormal reaction of the patient, or of later complication, without mention of misadventure at the time of the procedure ==

== ENCOUNTER → 2018-11-25 | Outpatient (CLI) | payer OTHER | END | disposition home or self-care (01) | LOC: WOUNDCARE 00:44 | DX: T81.31XD Disruption of external operation (surgical) wound, not elsewhere classified, subsequent encounter (principal); S31.000D Unspecified open wound of lower back and pelvis without penetration into retroperitoneum, subsequent encounter; G89.4 Chronic pain syndrome; M19.90 Unspecified osteoarthritis, unspecified site; J42 Unspecified chronic bronchitis; I10 Essential (primary) hypertension; F32.9 Major depressive disorder, single episode, unspecified; Z87.891 Personal history of nicotine dependence; X58.XXXD Exposure to other specified factors, subsequent encounter; Y83.8 Other surgical procedures as the cause of abnormal reaction of the patient, or of later complication, without mention of misadventure at the time of the procedure ==

== ENCOUNTER 2018-12-10 14:55 | Emergency (ER) | payer OTHER ==
[~2018-12-10] VITALS: Ht 149.8 cm; Wt 70.8 kg
[~2018-12-10 14:55] MED LIST changes: -DOXYCYCLINE100 M3 PO
[2018-12-10 16:41] LABS: BASO % 0.3 % (0.0-1.0); EOS # 0.4 10*3/uL (0.0-0.4); EOS % 4.6 % (1.0-4.0); HEMATOCRIT 27.9 % (37.0-47.0); LYMPH # 0.9 10*3/uL (1.3-4.4); LYMPH % 9.1 % (27.0-41.0); MEAN CELL VOLUME 82.8 fl (81.0-99.0); MEAN CORPUSCULAR HGB 23.7 pg (27.0-31.0); MEAN CORPUSCULAR HGB CONC 28.7 g/dl (33.0-37.0); MEAN PLATELET VOLUME 10.6 fl (9.6-12.3); MONO # 0.8 10*3/uL (0.1-1.0); MONO % 7.9 % (3.0-9.0); NEUT # 7.4 10*3/uL (2.3-7.9); NEUT % 77.6 % (47.0-73.0); PLATELET COUNT AUTOMATED 196 10*3/uL (130-400); RED BLOOD COUNT 3.37 10*6/uL (4.10-5.10); RED CELL DISTRI WIDTH 16.3 % (0-14.5); WHITE BLOOD COUNT 9.6 10*3/uL (4.8-10.8)
[2018-12-10 16:59] LABS: ALKALINE PHOSPHATASE 96 U/L (45-117); BUN 14 mg/dl (7-24); CHLORIDE 104 mmol/L (98-107); CREATININE 1.03 mg/dL (0.55-1.02); POTASSIUM 4.2 mmol/L (3.5-5.1); SGOT/AST 18 IU/L (3-35); SGPT/ALT 13 U/L (12-78); SODIUM 139 mmol/L (136-145); TOTAL PROTEIN 6.4 gm/dL (6.4-8.2)
[2018-12-10 17:42] VITALS: BP 117/51
[2018-12-10] MEDS ORDERED: DOXYCYCLINE100 M3 PO (17:51)
== END 2018-12-10 17:55 | disposition home or self-care (01) ==
LOC: ED 14:55
PROVIDERS: Physician Assistant
DX: L03.317 Cellulitis of buttock (principal); I10 Essential (primary) hypertension; G89.29 Other chronic pain; Z88.8 Allergy status to other drugs, medicaments and biological substances; Z79.899 Other long term (current) drug therapy; Z90.710 Acquired absence of both cervix and uterus; Z90.49 Acquired absence of other specified parts of digestive tract

== ENCOUNTER → 2018-12-13 | Outpatient (CLI) | payer OTHER ==
[~2018-12-13] MED LIST changes: +DOXYCYCLINE100 M3 PO
== END | disposition home or self-care (01) ==
LOC: WOUNDCARE 11:00
DX: T81.31XD Disruption of external operation (surgical) wound, not elsewhere classified, subsequent encounter (principal); G89.4 Chronic pain syndrome; M19.90 Unspecified osteoarthritis, unspecified site; J42 Unspecified chronic bronchitis; I10 Essential (primary) hypertension; F32.9 Major depressive disorder, single episode, unspecified; Z87.891 Personal history of nicotine dependence; Y83.8 Other surgical procedures as the cause of abnormal reaction of the patient, or of later complication, without mention of misadventure at the time of the procedure

== ENCOUNTER → 2018-12-16 | Outpatient (CLI) | payer OTHER | END | disposition home or self-care (01) | LOC: WOUNDCARE 08:28 | DX: T81.89XD Other complications of procedures, not elsewhere classified, subsequent encounter (principal); S31.000D Unspecified open wound of lower back and pelvis without penetration into retroperitoneum, subsequent encounter; G89.4 Chronic pain syndrome; M19.90 Unspecified osteoarthritis, unspecified site; I10 Essential (primary) hypertension; J42 Unspecified chronic bronchitis; F32.9 Major depressive disorder, single episode, unspecified; Z87.891 Personal history of nicotine dependence; Y83.8 Other surgical procedures as the cause of abnormal reaction of the patient, or of later complication, without mention of misadventure at the time of the procedure; X58.XXXD Exposure to other specified factors, subsequent encounter ==

== ENCOUNTER 2018-12-30 20:24 | Emergency (ER) | payer OTHER ==
[~2018-12-30] VITALS: Ht 160 cm; Wt 73.5 kg
--- NOTE | ~2018-12-30 | EKG ---
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 : 1945 Requested By: NEAL SEBASTIAN Order Number: [id number] Reading MD: Mejia Nicole MD Measurements Intervals [place] Rate: 120 P: 71 GA: 144 QRS: 33 QRSD: 89 T: 59 QT: 366 QTc: 518 Interpretive Statements Sinus tachycardia Abnormal R-wave progression, early transition Minimal ST depression, anterior leads Prolonged QT interval Baseline wander in lead(s) II,III,aVF,V1,V2,V6 Compared to ECG 09/24/2018 12:48:14 ST (T wave) deviation now present Prolonged QT interval now present Sinus rhythm no longer present Electronically Signed On 01-04-2019 4:07:13 PDT by Mejia Nicloe MD CM:EKGRPT:ELECTROCARDIOGRAM REPORT [id number] NEAL SEBASTIAN MD EPIPHANY DRAFT REPORT NELA SEBASTIAN MD
--- NOTE | ~2018-12-30 | EKG ---
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 Merida : 1945 Requested By: NEAL SEBASTIAN Order Number: [id number] Reading MD: Mejia Nicole MD Measurements Intervals [place] Rate: 119 P: 67 [place]: 141 QRS: 26 QRSD: 88 T: 59 QT: 325 QTc: 458 Interpretive Statements Sinus tachycardia Atrial premature complex Abnormal R-wave progression, early transition Minimal ST depression, anterolateral leads Baseline wander in lead(s) V1,V3,V4 Compared to ECG 09/24/2018 12:48:14 Atrial premature complex(es) now present ST (T wave) deviation now present Sinus rhythm no longer present Electronically Signed On 01-04-2019 4:07:22 PDT by Mejia Nicole MD CM:EKGRPT:ELECTROCARDIOGRAM REPORT 0407 NEAL SEBASTIAN MD EPIPHANY DRAFT REPORT NEAL SEBASTIAN MD
--- NOTE | ~2018-12-30 | EKG ---
[place], [place] ELECTROCARDIOGRAM REPORT NAME: ODETTE BOLAND UNIT #: [id number] ROOM: DOCTOR: EPIPHANY DRAFT REPORT BIRTHDATE: [birth year] [facility] Test Date: 2018-12-30 Test Time: 22:02:02 Pat Name: ODETET BOLAND Department: ER Room: 2 Gender: F Special Educator: Bonnie Merida : 1945 Requested By: NEAL SEBASTIAN Order Number: [id number] Reading MD: Mejia Nicole MD Measurements Intervals [place] Rate: 118 P: 61 RI: 139 QRS: 16 QRSD: 87 T: 51 QT: 369 QTc: 518 Interpretive Statements Sinus tachycardia Abnormal R-wave progression, early transition Minimal ST elevation, inferior leads Prolonged QT interval Baseline wander in lead(s) I,II,aVR,aVF Compared to ECG 09/24/2018 12:48:14 ST (T wave) deviation now present Prolonged QT interval now present Sinus rhythm no longer present Electronically Signed On 01-04-2019 4:07:29 PDT by Mejia Nicole MD CM:EKGRPT:ELECTROCARDIOGRAM REPORT 01 0407 NEAL SEBASTIAN MD EPIPHANY DRAFT REPORT NEAL SEBASTIAN MD
[2018-12-30 21:01] LABS: BASO % 0.2 % (0.0-1.0); EOS # 0.1 10*3/uL (0.0-0.4); EOS % 1.1 % (1.0-4.0); HEMATOCRIT 31.1 % (37.0-47.0); HEMOGLOBIN 8.9 g/dl (12.0-16.0); LYMPH # 0.8 10*3/uL (1.3-4.4); LYMPH % 6.4 % (27.0-41.0); MEAN CELL VOLUME 81.2 fl (81.0-99.0); MEAN CORPUSCULAR HGB 23.2 pg (27.0-31.0); MEAN CORPUSCULAR HGB CONC 28.6 g/dl (33.0-37.0); MEAN PLATELET VOLUME 11.4 fl (9.6-12.3); MONO # 0.5 10*3/uL (0.1-1.0); MONO % 4.3 % (3.0-9.0); NEUT # 10.4 10*3/uL (2.3-7.9); NEUT % 87.7 % (47.0-73.0); PLATELET COUNT AUTOMATED 183 10*3/uL (130-400); RED BLOOD COUNT 3.83 10*6/uL (4.10-5.10); RED CELL DISTRI WIDTH 17.3 % (0-14.5); WHITE BLOOD COUNT 11.9 10*3/uL (4.8-10.8)
[2018-12-30 21:04] LABS: BILIRUBIN NEGATIVE (NEGATIVE); BLOOD TRACE-INTACT (NEGATIVE); CLARITY CLEAR (CLEAR); COLOR YELLOW (YELLOW); GLUCOSE NEGATIVE (NEGATIVE); KETONE 1+ (NEGATIVE); LEUKO ESTERASE NEGATIVE (NEGATIVE); NITRITE NEGATIVE (NEGATIVE); PH 7.5 (5.0-9.0); SPECIFIC GRAVITY 1.015 (1.005-1.030); UROBILINOGEN 0.2 E.U./dl (0.2-1.0)
[2018-12-30 21:10] LABS: BACTERIA TRACE; RBC 0-2 rbc/hpf (0-2); WBC 0-2 wbc/hpf (0-5)
[2018-12-30 21:12] LABS: ACT PARTIAL THROMBO TIME 26.8 SECONDS (20.0-32.1)
[2018-12-30 21:12] LABS: URINE AMPHETAMINES < 1000 (1000ng/ml); URINE BARBITURATES < 200 (200ng/ml); URINE BENZODIAZEPINES > 200 (200ng/ml); URINE CANNABINOIDS (THC) < 50 (50ng/ml); URINE COCAINE < 300 (300ng/ml); URINE METHADONE < 300 (300ng/ml); URINE OPIATES > 300 (300ng/ml); URINE PHENCYCLIDINE < 25 (25ng/ml)
[2018-12-30 21:16] LABS: ALBUMIN 3.4 gm/dl (3.1-4.5); ALKALINE PHOSPHATASE 92 U/L (45-117); BUN 11 mg/dl (7-24); CHLORIDE 105 mmol/L (98-107); CREATININE 0.73 mg/dL (0.55-1.02); LIPASE 72 U/L (73-393); POTASSIUM 3.7 mmol/L (3.5-5.1); SGOT/AST 19 IU/L (3-35); SGPT/ALT 15 U/L (12-78); SODIUM 137 mmol/L (136-145); TOTAL PROTEIN 6.9 gm/dL (6.4-8.2)
[2018-12-30 21:17] LABS: TROPONIN I < 0.015 ng/ml (<0.045)
[2018-12-30 22:22] VITALS: BP 172/102
== END 2018-12-30 23:24 | disposition short-term general hospital (02) ==
LOC: ED 20:24
PROVIDERS: Emergency Medicine Emergency Medical Services
DX: T40.601A Poisoning by unspecified narcotics, accidental (unintentional), initial encounter (principal); R41.82 Altered mental status, unspecified; R09.02 Hypoxemia; R52 Pain, unspecified; L29.9 Pruritus, unspecified; R40.0 Somnolence; R25.1 Tremor, unspecified; R06.81 Apnea, not elsewhere classified; I10 Essential (primary) hypertension; E03.9 Hypothyroidism, unspecified; Z88.8 Allergy status to other drugs, medicaments and biological substances; Z79.2 Long term (current) use of antibiotics; Z79.899 Other long term (current) drug therapy; Z90.49 Acquired absence of other specified parts of digestive tract; Z90.710 Acquired absence of both cervix and uterus; Y92.098 Other place in other non-institutional residence as the place of occurrence of the external cause

== ENCOUNTER → 2019-08-08 | Outpatient (CLI) | payer OTHER ==
[2019-08-08 11:10] LABS: COLOR YELLOW (YELLOW)
[2019-08-08 11:11] LABS: BILIRUBIN NEGATIVE (NEGATIVE); BLOOD 1+ (NEGATIVE); CLARITY CLOUDY (CLEAR); GLUCOSE NEGATIVE (NEGATIVE); KETONE TRACE (NEGATIVE); LEUKO ESTERASE 3+ (NEGATIVE); NITRITE POSITIVE (NEGATIVE); SPECIFIC GRAVITY 1.025 (1.005-1.030)
[2019-08-08 11:16] LABS: BACTERIA 3+; RBC 21-30 rbc/hpf (0-2); WBC TNTC wbc/hpf (0-5)
== END | disposition home or self-care (01) ==
LOC: LAB 10:48
PROVIDERS: Family Medicine
DX: N30.00 Acute cystitis without hematuria (principal)

== ENCOUNTER → 2020-01-20 | Outpatient (CLI) | payer OTHER ==
[2020-01-20 11:27] LABS: BILIRUBIN NEGATIVE (NEGATIVE); BLOOD NEGATIVE (NEGATIVE); CLARITY CLEAR (CLEAR); COLOR YELLOW (YELLOW); GLUCOSE NEGATIVE (NEGATIVE); KETONE NEGATIVE (NEGATIVE); LEUKO ESTERASE TRACE (NEGATIVE); NITRITE NEGATIVE (NEGATIVE); SPECIFIC GRAVITY 1.005 (1.005-1.030); UROBILINOGEN 0.2 E.U./dl (0.2-1.0)
== END | disposition home or self-care (01) ==
LOC: LAB 10:55
PROVIDERS: Family Medicine
DX: N30.00 Acute cystitis without hematuria (principal)

== ENCOUNTER → 2020-06-25 | Outpatient (CLI) | payer OTHER | END | disposition home or self-care (01) | LOC: RAD 05-31 14:00 | PROVIDERS: ATTEND Orthopaedic Surgery | DX: M17.11 Unilateral primary osteoarthritis, right knee (principal); M16.12 Unilateral primary osteoarthritis, left hip; M87.852 Other osteonecrosis, left femur; Z78.0 Asymptomatic menopausal state ==

== ENCOUNTER → 2021-03-25 | Outpatient (CLI) | payer OTHER ==
[2021-03-25 15:12] LABS: BASO % 0.3 % (0.0-1.0); EOS # 0.3 10*3/uL (0.0-0.4); LYMPH # 1.1 10*3/uL (1.3-4.4); LYMPH % 12.1 % (27.0-41.0); MEAN CELL VOLUME 82.2 fl (81.0-99.0); MEAN CORPUSCULAR HGB 22.8 pg (27.0-31.0); MEAN CORPUSCULAR HGB CONC 27.7 g/dl (33.0-37.0); MEAN PLATELET VOLUME 10.3 fl (9.6-12.3); MONO # 0.7 10*3/uL (0.1-1.0); MONO % 7.4 % (3.0-9.0); PLATELET COUNT AUTOMATED 239 10*3/uL (130-400); RED BLOOD COUNT 3.77 10*6/uL (4.10-5.10); RED CELL DISTRI WIDTH 17.1 % (0-14.5); WHITE BLOOD COUNT 9.1 10*3/uL (4.8-10.8)
[2021-03-25 15:35] LABS: ALBUMIN 3.2 gm/dl (3.1-4.5); CREATININE 1.24 mg/dL (0.55-1.02); POTASSIUM 4.3 mmol/L (3.5-5.1); TOTAL PROTEIN 6.5 gm/dL (6.4-8.2)
[2021-03-25 15:46] LABS: THYROID STIM HORMONE (HS) 10.2 uIU/ml (0.358-4.75)
== END | disposition home or self-care (01) ==
LOC: LAB 14:35
PROVIDERS: ATTEND Family Medicine
DX: R53.83 Other fatigue (principal); Z79.899 Other long term (current) drug therapy

== ENCOUNTER → 2021-03-27 | Outpatient (CLI) | payer OTHER ==
[2021-03-27 13:23] LABS: BASO % 0.1 % (0.0-1.0); EOS % 0.6 % (1.0-4.0); HEMATOCRIT 28.8 % (37.0-47.0); LYMPH # 1.2 10*3/uL (1.3-4.4); LYMPH % 17.9 % (27.0-41.0); MEAN CELL VOLUME 80.4 fl (81.0-99.0); MEAN CORPUSCULAR HGB 23.2 pg (27.0-31.0); MEAN CORPUSCULAR HGB CONC 28.8 g/dl (33.0-37.0); MEAN PLATELET VOLUME 10.2 fl (9.6-12.3); MONO # 0.5 10*3/uL (0.1-1.0); MONO % 7.4 % (3.0-9.0); NEUT % 73.6 % (47.0-73.0); PLATELET COUNT AUTOMATED 231 10*3/uL (130-400); RED BLOOD COUNT 3.58 10*6/uL (4.10-5.10); RED CELL DISTRI WIDTH 16.6 % (0-14.5); RETICULOCYTE % 1.43 % (0.50-2.50); WHITE BLOOD COUNT 6.8 10*3/uL (4.8-10.8)
[2021-03-27 13:39] LABS: IRON 19 ug/dL (50-170); TOTAL IRON BINDING CAPACITY 387 ug/dl (250-450)
[2021-03-27 14:59] LABS: FERRITIN 4.3 ng/mL (10.0-291.0)
== END | disposition home or self-care (01) ==
LOC: LAB 12:49
PROVIDERS: ATTEND Family Medicine
DX: D50.9 Iron deficiency anemia, unspecified (principal)

== ENCOUNTER 2021-08-07 17:42 | Emergency (ER) | payer OTHER ==
[~2021-08-07] VITALS: Ht 149.8 cm; Wt 64.4 kg
[2021-08-07 17:54] VITALS: BP 93/53
[2021-08-07 18:59] LABS: HEMATOCRIT 39.9 % (37.0-47.0); MANUAL DIFF REFLEX YES; MEAN CELL VOLUME 90.7 fl (81.0-99.0); MEAN CORPUSCULAR HGB 28.4 pg (27.0-31.0); MEAN CORPUSCULAR HGB CONC 31.3 g/dl (33.0-37.0); MEAN PLATELET VOLUME 9.7 fl (9.6-12.3); PLATELET COUNT AUTOMATED 169 10*3/uL (130-400); WHITE BLOOD COUNT 10.1 10*3/uL (4.8-10.8)
[2021-08-07 19:10] LABS: ACT PARTIAL THROMBO TIME 26.3 SECONDS (20.0-32.1)
[2021-08-07 19:14] LABS: CREATININE 1.14 mg/dL (0.55-1.02); POTASSIUM 4.2 mmol/L (3.5-5.1); TOTAL PROTEIN 5.8 gm/dL (6.4-8.2)
[2021-08-07 19:28] LABS: PLATELET SUFFICIENCY NORMAL (NORMAL); STOMATOCYTE FEW; TOTAL CELLS COUNTED 100 #CELLS
== END 2021-08-07 22:08 | disposition home or self-care (01) ==
LOC: ED 17:42
PROVIDERS: Physician Assistant
DX: S22.41XA Multiple fractures of ribs, right side, initial encounter for closed fracture (principal); I10 Essential (primary) hypertension; Z90.710 Acquired absence of both cervix and uterus; Z90.49 Acquired absence of other specified parts of digestive tract; Z98.890 Other specified postprocedural states; Z79.899 Other long term (current) drug therapy; Z88.8 Allergy status to other drugs, medicaments and biological substances; W18.39XA Other fall on same level, initial encounter; Y93.89 Activity, other specified; Y92.89 Other specified places as the place of occurrence of the external cause; Y99.8 Other external cause status

== ENCOUNTER 2021-10-09 13:54 | Emergency (ER) | payer OTHER ==
[~2021-10-09] VITALS: Ht 149.8 cm; Wt 61.7 kg
[2021-10-09 14:00] VITALS: BP 152/79
== END 2021-10-09 15:45 | disposition home or self-care (01) ==
LOC: ED 13:54
DX: M79.604 Pain in right leg (principal); Z88.8 Allergy status to other drugs, medicaments and biological substances; Z79.899 Other long term (current) drug therapy; Z90.49 Acquired absence of other specified parts of digestive tract; Z98.890 Other specified postprocedural states; Z90.710 Acquired absence of both cervix and uterus

== ENCOUNTER 2022-03-11 16:33 | Emergency (ER) | payer OTHER ==
[~2022-03-11] VITALS: Ht 149.8 cm; Wt 63.5 kg
[2022-03-11 17:23] VITALS: BP 113/50
[2022-03-11] MEDS ORDERED: CARVEDILOL6.25 MG PO (17:28)
[2022-03-11] MEDS ORDERED: BUPROPION HYDR150 M1 PO (17:29)
[2022-03-11] MEDS ORDERED: PREDNISONE20 M1 PO (19:47)
[2022-03-11] MEDS ORDERED: PROVENTIL HFA6.7 GM INH (19:47)
== END 2022-03-11 20:33 | disposition home or self-care (01) ==
LOC: ED 16:33
DX: U07.1 COVID-19 (principal); Z88.8 Allergy status to other drugs, medicaments and biological substances; Z90.710 Acquired absence of both cervix and uterus; Z90.49 Acquired absence of other specified parts of digestive tract

== ENCOUNTER 2022-05-06 11:48 | Inpatient (IN) | payer MEDICARE, OTHER ==
[~2022-05-06] VITALS: Ht 149.9 cm; Wt 60.9 kg
[~2022-05-06 11:48] MED LIST changes: +BUPROPION HYDR150 M1 PO; +CARVEDILOL6.25 MG PO; +PREDNISONE20 M1 PO; +PROVENTIL HFA6.7 GM INH
[2022-05-06 11:59] VITALS: BP 170/81
[2022-05-06 13:29] LABS: BASO % 0.1 % (0.0-1.0); EOS % 0.2 % (1.0-4.0); HEMATOCRIT 43.8 % (37.0-47.0); LYMPH # 0.6 10*3/uL (1.3-4.4); LYMPH % 6.3 % (27.0-41.0); MEAN CELL VOLUME 98.9 fl (81.0-99.0); MEAN CORPUSCULAR HGB 30.9 pg (27.0-31.0); MEAN CORPUSCULAR HGB CONC 31.3 g/dl (33.0-37.0); MEAN PLATELET VOLUME 10.4 fl (9.6-12.3); MONO # 0.5 10*3/uL (0.1-1.0); NEUT # 7.7 10*3/uL (2.3-7.9); NEUT % 86.9 % (47.0-73.0); PLATELET COUNT AUTOMATED 141 10*3/uL (130-400); RED BLOOD COUNT 4.43 10*6/uL (4.10-5.10); RED CELL DISTRI WIDTH 13.4 % (0-14.5); WHITE BLOOD COUNT 8.8 10*3/uL (4.8-10.8)
[2022-05-06 13:32] LABS: ACT PARTIAL THROMBO TIME 24.7 SECONDS (20.0-32.1)
[2022-05-06 13:42] LABS: ALKALINE PHOSPHATASE 63 U/L (45-117); BUN 26 mg/dl (7-24); CHLORIDE 99 mmol/L (98-107); CREATININE 1.04 mg/dL (0.55-1.02); LIPASE 98 U/L (73-393); POTASSIUM 3.6 mmol/L (3.5-5.1); SGOT/AST 23 IU/L (3-35); SGPT/ALT 23 U/L (12-78); SODIUM 136 mmol/L (136-145); TOTAL PROTEIN 6.5 gm/dL (6.4-8.2)
[2022-05-06 15:08] VITALS: BP 159/71
[2022-05-06] MEDS ORDERED: PREGABALIN150 MG PO (15:44)
[2022-05-06] MEDS ORDERED: ALENDRONATE SOD70 M1 PO (15:45)
[2022-05-06 16:00] VITALS: BP 114/76
[2022-05-06 20:00] VITALS: BP 105/50
[2022-05-07] VITALS: BP 121/50
[2022-05-07 06:10] LABS: ALKALINE PHOSPHATASE 57 U/L (45-117); BUN 24 mg/dl (7-24); CHLORIDE 104 mmol/L (98-107); CREATININE 0.97 mg/dL (0.55-1.02); SGOT/AST 20 IU/L (3-35); SGPT/ALT 19 U/L (12-78); SODIUM 138 mmol/L (136-145); TOTAL PROTEIN 5.7 gm/dL (6.4-8.2)
[2022-05-07 06:16] LABS: POTASSIUM 5.1 mmol/L (3.5-5.1)
[2022-05-07 06:42] LABS: HEMATOCRIT 40.1 % (37.0-47.0); MEAN CORPUSCULAR HGB 31.4 pg (27.0-31.0); MEAN CORPUSCULAR HGB CONC 31.4 g/dl (33.0-37.0); MEAN PLATELET VOLUME 10.8 fl (9.6-12.3); PLATELET COUNT AUTOMATED 142 10*3/uL (130-400); RED BLOOD COUNT 4.01 10*6/uL (4.10-5.10); RED CELL DISTRI WIDTH 13.4 % (0-14.5)
[2022-05-07 07:14] LABS: MANUAL DIFF REFLEX YES
[2022-05-07 07:43] LABS: TOTAL CELLS COUNTED 100 #CELLS
[2022-05-07 07:44] LABS: PLATELET SUFFICIENCY NORMAL (NORMAL); TOXIC GRANULATION SLIGHT
[2022-05-07 07:46] LABS: OVALOCYTES FEW; POLYCHROMASIA SLIGHT
[2022-05-07 08:00] VITALS: BP 110/72
[2022-05-07 12:00] VITALS: BP 132/86
[2022-05-07] MEDS ORDERED: PROVENTIL HFA6.7 GM INH (13:53)
[2022-05-07] MEDS ORDERED: PREDNISONE10 MG PO (13:53)
[2022-05-07] MEDS ORDERED: ZITHROMAX250 MG PO (13:53)
[2022-05-07] MEDS ORDERED: OMNICEF300 MG PO (13:53)
== END 2022-05-07 14:40 | disposition home or self-care (01) | DRG 871 ==
LOC: ED 11:48 → EDHOLD 14:29 → 4E 14:29
PROVIDERS: Emergency Medicine; Internal Medicine; ADMIT Internal Medicine; ATTEND Internal Medicine
DX: A41.9 Sepsis, unspecified organism (principal); J18.9 Pneumonia, unspecified organism; E44.0 Moderate protein-calorie malnutrition; E87.20 Acidosis, unspecified; K50.90 Crohn's disease, unspecified, without complications; F33.40 Major depressive disorder, recurrent, in remission, unspecified; M51.16 Intervertebral disc disorders with radiculopathy, lumbar region; M48.061 Spinal stenosis, lumbar region without neurogenic claudication; F41.9 Anxiety disorder, unspecified; I10 Essential (primary) hypertension; G89.4 Chronic pain syndrome; E03.9 Hypothyroidism, unspecified; Z88.8 Allergy status to other drugs, medicaments and biological substances; Z90.49 Acquired absence of other specified parts of digestive tract; Z90.710 Acquired absence of both cervix and uterus; Z81.1 Family history of alcohol abuse and dependence; Z80.1 Family history of malignant neoplasm of trachea, bronchus and lung; Z83.6 Family history of other diseases of the respiratory system; Z68.27 Body mass index [BMI] 27.0-27.9, adult

== ENCOUNTER 2022-06-30 15:37 | Emergency (ER) | payer OTHER ==
[~2022-06-30] VITALS: Wt 65.8 kg
[~2022-06-30 15:37] MED LIST changes: +ALENDRONATE SOD70 M1 PO; +OMNICEF300 MG PO; +PREDNISONE10 MG PO; +PREGABALIN150 MG PO; +ZITHROMAX250 MG PO
[2022-06-30 16:04] VITALS: BP 120/93
[2022-06-30 17:32] LABS: BASO # 0.1 10*3/uL (0.0-0.1); EOS # 0.3 10*3/uL (0.0-0.4); HEMATOCRIT 41.2 % (37.0-47.0); LYMPH # 0.9 10*3/uL (1.3-4.4); LYMPH % 14.8 % (27.0-41.0); MEAN CELL VOLUME 98.3 fl (81.0-99.0); MEAN CORPUSCULAR HGB 30.3 pg (27.0-31.0); MEAN CORPUSCULAR HGB CONC 30.8 g/dl (33.0-37.0); MEAN PLATELET VOLUME 9.2 fl (9.6-12.3); MONO # 0.7 10*3/uL (0.1-1.0); NEUT # 4.1 10*3/uL (2.3-7.9); NEUT % 67.4 % (47.0-73.0); PLATELET COUNT AUTOMATED 341 10*3/uL (130-400); RED BLOOD COUNT 4.19 10*6/uL (4.10-5.10); RED CELL DISTRI WIDTH 14.2 % (0-14.5)
[2022-06-30 17:38] LABS: BILIRUBIN 1+ (Negative); BLOOD Negative (Negative); CLARITY Clear (Clear); COLOR Dark Yellow (Yellow); GLUCOSE Negative (Negative); KETONE Trace (Negative); LEUKO ESTERASE 1+ (Negative); NITRITE Negative (Negative); SPECIFIC GRAVITY >= 1.030 (1.001-1.030)
[2022-06-30 17:56] LABS: ALKALINE PHOSPHATASE 69 U/L (46-116); BUN 18 mg/dl (9-23); TOTAL PROTEIN 6.1 gm/dL (6.0-8.0)
[2022-06-30 18:06] LABS: BACTERIA 1+
[2022-06-30 18:12] LABS: CHLORIDE 100 mmol/L (98-107); POTASSIUM 4.2 mmol/L (3.4-5.1)
[2022-06-30 18:24] LABS: SGPT/ALT < 7 U/L (10-49)
== END 2022-06-30 18:53 | disposition home or self-care (01) ==
LOC: ED 15:37
PROVIDERS: Physician Assistant
DX: N39.0 Urinary tract infection, site not specified (principal); Z90.89 Acquired absence of other organs; Z90.710 Acquired absence of both cervix and uterus; Z98.890 Other specified postprocedural states

== ENCOUNTER → 2022-09-10 | Outpatient (CLI) | payer OTHER ==
[2022-09-10 15:33] LABS: BASO % 0.3 % (0.0-1.0); EOS % 0.1 % (1.0-4.0); HEMATOCRIT 39.9 % (37.0-47.0); LYMPH # 0.9 10*3/uL (1.3-4.4); LYMPH % 11.7 % (27.0-41.0); MEAN CELL VOLUME 95.5 fl (81.0-99.0); MEAN CORPUSCULAR HGB 28.9 pg (27.0-31.0); MEAN CORPUSCULAR HGB CONC 30.3 g/dl (33.0-37.0); MEAN PLATELET VOLUME 10.4 fl (9.6-12.3); MONO # 0.5 10*3/uL (0.1-1.0); MONO % 5.7 % (3.0-9.0); NEUT # 6.5 10*3/uL (2.3-7.9); NEUT % 81.8 % (47.0-73.0); PLATELET COUNT AUTOMATED 175 10*3/uL (130-400); RED BLOOD COUNT 4.18 10*6/uL (4.10-5.10)
[2022-09-10 15:51] LABS: POTASSIUM 4.8 mmol/L (3.4-5.1); THYROID STIM HORMONE (HS) 3.688 uIU/ml (0.550-4.780)
== END | disposition home or self-care (01) ==
LOC: LAB 14:40
PROVIDERS: ATTEND Family Medicine
DX: I10 Essential (primary) hypertension (principal); E03.9 Hypothyroidism, unspecified

== ENCOUNTER → 2022-12-03 | Outpatient (CLI) | payer OTHER | END | disposition home or self-care (01) | LOC: RAD 14:03 | PROVIDERS: ATTEND Family Medicine | DX: M47.16 Other spondylosis with myelopathy, lumbar region (principal); M51.06 Intervertebral disc disorders with myelopathy, lumbar region ==

== ENCOUNTER 2022-12-17 18:29 | Inpatient (IN) | payer OTHER ==
[~2022-12-17] VITALS: Ht 149.9 cm; Wt 59.5 kg
[2022-12-17 18:31] VITALS: BP 123/38
[2022-12-17 18:58] LABS: BASO % 0.1 % (0.0-1.0); EOS % 0.1 % (1.0-4.0); HEMATOCRIT 41.1 % (37.0-47.0); LYMPH # 0.7 10*3/uL (1.3-4.4); LYMPH % 4.7 % (27.0-41.0); MEAN CELL VOLUME 93.4 fl (81.0-99.0); MEAN CORPUSCULAR HGB 30.5 pg (27.0-31.0); MEAN CORPUSCULAR HGB CONC 32.6 g/dl (33.0-37.0); MEAN PLATELET VOLUME 9.5 fl (9.6-12.3); MONO # 0.7 10*3/uL (0.1-1.0); MONO % 4.9 % (3.0-9.0); NEUT # 13.3 10*3/uL (2.3-7.9); NEUT % 89.9 % (47.0-73.0); PLATELET COUNT AUTOMATED 270 10*3/uL (130-400); RED CELL DISTRI WIDTH 14.8 % (0-14.5); WHITE BLOOD COUNT 14.8 10*3/uL (4.8-10.8)
[2022-12-17 19:20] VITALS: BP 120/68
[2022-12-17 19:25] LABS: POTASSIUM 3.8 mmol/L (3.4-5.1)
[2022-12-17 20:47] LABS: BILIRUBIN Negative (Negative); BLOOD Negative (Negative); CLARITY Clear (Clear); COLOR Dark Yellow (Yellow); GLUCOSE Negative (Negative); KETONE Trace (Negative); LEUKO ESTERASE Trace (Negative); NITRITE Negative (Negative); PH 5.5 (4.5-8.0); SPECIFIC GRAVITY >= 1.030 (1.001-1.030)
[2022-12-17 20:55] LABS: BACTERIA 1+; RBC 0-2 rbc/hpf (0-2)
[2022-12-17 21:40] VITALS: BP 91/28
[2022-12-17 22:33] VITALS: BP 101/34
[2022-12-17 22:56] VITALS: BP 111/47
[2022-12-18 00:03] VITALS: BP 108/45
[2022-12-18 06:08] LABS: HEMATOCRIT 34.9 % (37.0-47.0); MEAN CELL VOLUME 95.6 fl (81.0-99.0); MEAN CORPUSCULAR HGB 30.7 pg (27.0-31.0); MEAN CORPUSCULAR HGB CONC 32.1 g/dl (33.0-37.0); PLATELET COUNT AUTOMATED 217 10*3/uL (130-400); RED BLOOD COUNT 3.65 10*6/uL (4.10-5.10); WHITE BLOOD COUNT 11.2 10*3/uL (4.8-10.8)
[2022-12-18 06:10] LABS: BASO % 0.2 % (0.0-1.0); EOS % 0.4 % (1.0-4.0); LYMPH # 0.8 10*3/uL (1.3-4.4); MONO # 0.9 10*3/uL (0.1-1.0); MONO % 7.8 % (3.0-9.0); NEUT # 9.5 10*3/uL (2.3-7.9); NEUT % 84.2 % (47.0-73.0)
[2022-12-18 06:27] LABS: BUN 25 mg/dl (9-23); CHLORIDE 106 mmol/L (98-107); POTASSIUM 3.3 mmol/L (3.4-5.1)
[2022-12-18] MEDS ORDERED: AUVELITY ER 451 EACH PO (06:34)
[2022-12-18] MEDS ORDERED: OXYCODONE HYDRO30 MG PO (06:35)
[2022-12-18 08:00] VITALS: BP 121/52
[2022-12-18 12:00] VITALS: BP 129/58
[2022-12-18 16:00] VITALS: BP 142/49
[2022-12-18 20:00] VITALS: BP 104/48
[2022-12-19] VITALS: BP 108/44
[2022-12-19 03:00] VITALS: BP 110/43
[2022-12-19 06:36] LABS: BASO % 0.1 % (0.0-1.0); EOS % 0.1 % (1.0-4.0); HEMATOCRIT 32.6 % (37.0-47.0); LYMPH # 0.6 10*3/uL (1.3-4.4); LYMPH % 6.5 % (27.0-41.0); MEAN CELL VOLUME 95.9 fl (81.0-99.0); MEAN CORPUSCULAR HGB 30.6 pg (27.0-31.0); MEAN CORPUSCULAR HGB CONC 31.9 g/dl (33.0-37.0); MONO # 0.5 10*3/uL (0.1-1.0); MONO % 5.3 % (3.0-9.0); NEUT # 8.6 10*3/uL (2.3-7.9); NEUT % 87.4 % (47.0-73.0); PLATELET COUNT AUTOMATED 194 10*3/uL (130-400); RED CELL DISTRI WIDTH 14.7 % (0-14.5); WHITE BLOOD COUNT 9.8 10*3/uL (4.8-10.8)
[2022-12-19 07:09] LABS: BUN 18 mg/dl (9-23); CHLORIDE 103 mmol/L (98-107)
[2022-12-19 08:00] VITALS: BP 139/60
[2022-12-19] MEDS ORDERED: OMNICEF300 MG PO (09:33)
== END 2022-12-19 10:45 | disposition home or self-care (01) | DRG 871 ==
LOC: ED 18:29 → 5E 21:30 → EDHOLD 21:30 → 5E 23:13
PROVIDERS: Family Medicine; Student in an Organized Health Care Education/Training Program; ADMIT Family Medicine; ATTEND Family Medicine
DX: A41.9 Sepsis, unspecified organism (principal); J96.01 Acute respiratory failure with hypoxia; N17.0 Acute kidney failure with tubular necrosis; S32.040A Wedge compression fracture of fourth lumbar vertebra, initial encounter for closed fracture; N30.00 Acute cystitis without hematuria; E87.1 Hypo-osmolality and hyponatremia; E44.1 Mild protein-calorie malnutrition; J98.11 Atelectasis; K50.10 Crohn's disease of large intestine without complications; R65.20 Severe sepsis without septic shock; R73.9 Hyperglycemia, unspecified; E83.51 Hypocalcemia; M48.00 Spinal stenosis, site unspecified; F32.A Depression, unspecified; G89.4 Chronic pain syndrome; N18.30 Chronic kidney disease, stage 3 unspecified; Q63.1 Lobulated, fused and horseshoe kidney; N18.32 Chronic kidney disease, stage 3b; I12.9 Hypertensive chronic kidney disease with stage 1 through stage 4 chronic kidney disease, or unspecified chronic kidney disease; Z90.49 Acquired absence of other specified parts of digestive tract; Z90.710 Acquired absence of both cervix and uterus; Z87.891 Personal history of nicotine dependence; Z80.1 Family history of malignant neoplasm of trachea, bronchus and lung; Z82.5 Family history of asthma and other chronic lower respiratory diseases; Z79.899 Other long term (current) drug therapy; Z88.8 Allergy status to other drugs, medicaments and biological substances; Z79.51 Long term (current) use of inhaled steroids; Y93.89 Activity, other specified; Y92.89 Other specified places as the place of occurrence of the external cause; Y99.8 Other external cause status; Z68.38 Body mass index [BMI] 38.0-38.9, adult

== ENCOUNTER → 2023-07-01 | Outpatient (CLI) | payer OTHER ==
[~2023-07-01] MED LIST changes: +AUVELITY ER 451 EACH PO
== END | disposition home or self-care (01) ==
LOC: RAD 13:01
PROVIDERS: ATTEND Family Medicine
DX: J98.11 Atelectasis (principal); R05.9 Cough, unspecified; K44.9 Diaphragmatic hernia without obstruction or gangrene; J84.9 Interstitial pulmonary disease, unspecified

== ENCOUNTER → 2023-09-29 | Outpatient (CLI) | payer OTHER | END | disposition home or self-care (01) | LOC: RAD 15:53 | PROVIDERS: ATTEND Internal Medicine | DX: J20.9 Acute bronchitis, unspecified (principal); K44.9 Diaphragmatic hernia without obstruction or gangrene ==

== ENCOUNTER → 2024-01-14 | Outpatient (CLI) | payer OTHER | END | disposition home or self-care (01) | LOC: RAD 12:37 | PROVIDERS: ATTEND Internal Medicine | DX: M19.011 Primary osteoarthritis, right shoulder (principal); M77.8 Other enthesopathies, not elsewhere classified ==

== ENCOUNTER → 2024-04-20 | Outpatient (CLI) | payer MEDICARE ==
[~2024-04-20] MED LIST changes: +AMPHETAMINE SAL15 M1 PO; +AUGMENTIN 500500 M1 PO; +LEVOTHYROXINE50 MCG PO; +SERTRALINE HYD100 MG PO
== END | disposition home or self-care (01) ==
LOC: ORTHO 03:29
PROVIDERS: ATTEND Orthopaedic Surgery
DX: M17.11 Unilateral primary osteoarthritis, right knee (principal); M11.261 Other chondrocalcinosis, right knee

== ENCOUNTER 2024-05-04 11:21 | Emergency (ER) | payer MEDICARE ==
[~2024-05-04] VITALS: Wt 62.6 kg
[2024-05-04 11:28] VITALS: BP 133/93
== END 2024-05-04 12:32 | disposition home or self-care (01) ==
LOC: ED 11:21
DX: S70.01XA Contusion of right hip, initial encounter (principal); Z88.8 Allergy status to other drugs, medicaments and biological substances; Z79.899 Other long term (current) drug therapy; Z90.49 Acquired absence of other specified parts of digestive tract; Z90.710 Acquired absence of both cervix and uterus; Z98.890 Other specified postprocedural states; Z87.891 Personal history of nicotine dependence; W01.0XXA Fall on same level from slipping, tripping and stumbling without subsequent striking against object, initial encounter; Y93.89 Activity, other specified; Y92.89 Other specified places as the place of occurrence of the external cause; Y99.8 Other external cause status

== ENCOUNTER 2024-05-25 16:31 | Inpatient (IN) | payer MEDICARE ==
[~2024-05-25] VITALS: Ht 149.8 cm; Wt 61.2 kg
[2024-05-25 16:53] VITALS: BP 140/54
[2024-05-25] MEDS ORDERED: MORPHINE Sulfate 2 MG/ML SYR IV ONE (17:00)
[2024-05-25] MEDS ORDERED: Ondansetron Hydrochloride 4 MG/2 ML VIAL IV ONE (17:00)
[2024-05-25] MEDS ORDERED: SODIUM CHLORIDE 0.9% 1,000 ML IV ONE (17:00)
[2024-05-25 17:14] LABS: BASO % 0.2 % (0.0-1.0); EOS # 0.2 10*3/uL (0.0-0.4); EOS % 2.7 % (1.0-4.0); HEMATOCRIT 40.4 % (37.0-47.0); MEAN CELL VOLUME 96.7 fl (81.0-99.0); MEAN CORPUSCULAR HGB 29.9 pg (27.0-31.0); MEAN CORPUSCULAR HGB CONC 30.9 g/dl (33.0-37.0); MEAN PLATELET VOLUME 9.5 fl (9.6-12.3); MONO # 0.8 10*3/uL (0.1-1.0); MONO % 9.3 % (3.0-9.0); NEUT # 6.3 10*3/uL (2.3-7.9); NEUT % 71.7 % (47.0-73.0); PLATELET COUNT AUTOMATED 233 10*3/uL (130-400); RED BLOOD COUNT 4.18 10*6/uL (4.10-5.10); RED CELL DISTRI WIDTH 14.8 % (0-14.5); WHITE BLOOD COUNT 8.7 10*3/uL (4.8-10.8)
[2024-05-25 17:34] LABS: BUN 17 mg/dl (9-23); CHLORIDE 101 mmol/L (98-107); POTASSIUM 4.4 mmol/L (3.4-5.1)
[2024-05-25 20:41] VITALS: BP 163/66
[2024-05-25] MEDS ORDERED: ALENDRONATE SODIUM 70 MG TAB PO SCH (21:00)
[2024-05-25] MEDS ORDERED: PREGABALIN 75 MG CAP PO SCH (22:00)
[2024-05-25] MEDS ORDERED: CARVEDILOL 6.25 MG TAB PO SCH (22:00)
[2024-05-25 23:37] VITALS: BP 136/87
[2024-05-26] VITALS (7 sets, daily range): BP systolic 90–149; BP diastolic 42–73
[2024-05-26] MEDS ORDERED: OXYCODONE HCL (IR) 10 MG TABLET PO SCH
[2024-05-26] MEDS ORDERED: Levothyroxine Sodium 50 MCG TAB PO SCH (06:00)
[2024-05-26] MEDS ORDERED: Amphetamine Salt Combination 5 MG TAB PO SCH (08:00)
[2024-05-26] MEDS ORDERED: Sertraline Hydrochloride 50 MG TAB PO SCH (10:00)
[2024-05-26] MEDS ORDERED: ACETAMINOPHEN 325 MG TAB PO ONE (10:40)
[2024-05-26] MEDS ORDERED: DULOXETINE HCL60 MG PO (21:06)
[2024-05-26] MEDS ORDERED: TIZANIDINE HCL4 MG PO (21:07)
[2024-05-27] VITALS: BP 126/52
[2024-05-27] MEDS ORDERED: OXYCODONE HCL (IR) 10 MG TABLET PO SCH
[2024-05-27 08:00] VITALS: BP 181/57
[2024-05-27] MEDS ORDERED: Duloxetine Hydrochloride 60 MG CAP PO SCH (10:00)
[2024-05-27] MEDS ORDERED: Cholecalciferol 2,000 UNIT TABLET (50 MCG) PO SCH (10:00)
[2024-05-27 12:00] VITALS: BP 139/63
[2024-05-29] MEDS ORDERED: ALENDRONATE SODIUM 70 MG TAB PO SCH (06:00)
== END 2024-05-27 14:58 | disposition home health service (06) | DRG 543 ==
LOC: ED 16:31 → EDHOLD 18:50 → 4E 05-26 14:53
PROVIDERS: Emergency Medicine; ADMIT Internal Medicine; ATTEND Internal Medicine
DX: M80.8B Other osteoporosis with current pathological fracture, pelvis (principal); K50.10 Crohn's disease of large intestine without complications; Q63.1 Lobulated, fused and horseshoe kidney; F32.9 Major depressive disorder, single episode, unspecified; M51.16 Intervertebral disc disorders with radiculopathy, lumbar region; F41.9 Anxiety disorder, unspecified; I12.9 Hypertensive chronic kidney disease with stage 1 through stage 4 chronic kidney disease, or unspecified chronic kidney disease; G89.4 Chronic pain syndrome; S70.01XA Contusion of right hip, initial encounter; E03.9 Hypothyroidism, unspecified; F90.9 Attention-deficit hyperactivity disorder, unspecified type; N18.32 Chronic kidney disease, stage 3b; K57.30 Diverticulosis of large intestine without perforation or abscess without bleeding; M48.00 Spinal stenosis, site unspecified; Z88.8 Allergy status to other drugs, medicaments and biological substances; Z91.09 Other allergy status, other than to drugs and biological substances; Z79.899 Other long term (current) drug therapy; Z79.01 Long term (current) use of anticoagulants; Z79.2 Long term (current) use of antibiotics; Z90.49 Acquired absence of other specified parts of digestive tract; Z90.710 Acquired absence of both cervix and uterus; Z87.891 Personal history of nicotine dependence; Z82.5 Family history of asthma and other chronic lower respiratory diseases; Z80.1 Family history of malignant neoplasm of trachea, bronchus and lung; Z82.49 Family history of ischemic heart disease and other diseases of the circulatory system; Z98.890 Other specified postprocedural states

== ENCOUNTER 2024-07-02 13:57 | Emergency (ER) | payer OTHER ==
[~2024-07-02] VITALS: Ht 160 cm; Wt 52.9 kg
[~2024-07-02 13:57] MED LIST changes: +DULOXETINE HCL60 MG PO; +ERTAPENEM1 GM IV; +TIZANIDINE HCL4 MG PO
[2024-07-02 14:11] VITALS: BP 134/46
[2024-07-02 14:37] LABS: BASO % 0.2 % (0.0-1.0); EOS % 0.5 % (1.0-4.0); HEMATOCRIT 36.1 % (37.0-47.0); MEAN CELL VOLUME 93.3 fl (81.0-99.0); MEAN CORPUSCULAR HGB 28.9 pg (27.0-31.0); MEAN PLATELET VOLUME 9.3 fl (9.6-12.3); MONO # 0.5 10*3/uL (0.1-1.0); MONO % 7.3 % (3.0-9.0); NEUT # 4.8 10*3/uL (2.3-7.9); NEUT % 77.5 % (47.0-73.0); PLATELET COUNT AUTOMATED 268 10*3/uL (130-400); RED BLOOD COUNT 3.87 10*6/uL (4.10-5.10); RED CELL DISTRI WIDTH 13.5 % (0-14.5); WHITE BLOOD COUNT 6.2 10*3/uL (4.8-10.8)
[2024-07-02 14:56] LABS: BUN 14 mg/dl (9-23); CHLORIDE 100 mmol/L (98-107); POTASSIUM 3.6 mmol/L (3.4-5.1)
== END 2024-07-02 15:45 | disposition home or self-care (01) ==
LOC: ED 13:57
PROVIDERS: Emergency Medicine
DX: J40 Bronchitis, not specified as acute or chronic (principal); F32.A Depression, unspecified; F41.9 Anxiety disorder, unspecified; Z88.8 Allergy status to other drugs, medicaments and biological substances; Z90.49 Acquired absence of other specified parts of digestive tract; Z90.710 Acquired absence of both cervix and uterus; Z98.890 Other specified postprocedural states; Z87.891 Personal history of nicotine dependence; I10 Essential (primary) hypertension